=== PATIENT | male | born 1960 | race Caucasian/White ===

== ENCOUNTER 2017-11-27 16:22 | Inpatient (IN) | payer OTHER ==
[~2017-11-27] VITALS: Ht 188 cm; Wt 125.6 kg
[~2017-11-27 16:22] MED LIST: ALBU6.7H INH; ALLO300T PO; ASPI-496 PO; BUDE10.2 INH; CELE200C PO; CHOL2000 PO; COLC0.6T37 PO; FLUT9.9S NAS; GLIP-142 PO; GLUC1TAB32 PO; HYDR-3237 PO; INSU300I SQ; LOVA20TA2 PO; METF10002 PO; MONT10TA9 PO; MULT-412 PO; OMEP20TA62 PO; QUIN40TA PO
[2017-11-27] MEDS ORDERED: FLUT1DIS5 IH (16:53)
[2017-11-27] MEDS ORDERED: LOSA100T6 PO (16:53)
[2017-11-27] MEDS ORDERED: MELO15TA6 PO (16:53)
[2017-11-27] MEDS ORDERED: HYDR25TA6 PO (16:53)
[2017-11-27] MEDS ORDERED: SODIUM CHLORIDE 0.9% 1,000 ML IV ONE ×2 (17:17→18:58)
[2017-11-27] MEDS ORDERED: SODIUM CHLORIDE 0.9% 1,000ML IVBOLUS ONE ×2 (17:30→18:30)
[2017-11-27] MEDS ORDERED: IBUPROFEN 200 MG TABLET ONE (17:30)
[2017-11-27] MEDS ORDERED: SODIUM CHLORIDE FLUSH 10ML SYR IVF ONE (17:30)
[2017-11-27] MEDS ORDERED: IBUPROFEN 200 MG TABLET PO ONE (17:30)
[2017-11-27 17:58] LABS: MEAN CORPUSCULAR HEMOGLOBIN 28.9 pg (27.5-34.5); MEAN CORPUSCULAR HGB CONC 33.3 g/dL (33.2-36.2); MEAN CORPUSCULAR VOLUME 86.8 fL (81-97); MEAN PLATELET VOLUME 8.9 fL (7.4-10.4); PLATELET COUNT 178 x10^3/uL (130-400); RED BLOOD COUNT 4.76 x10^6/uL (4.38-5.82); RED CELL DISTRIBUTION WIDTH 15.1 % (9.4-14.8)
[2017-11-27 17:59] LABS: RAPID INFLUENZA A Negative (Negative); RAPID INFLUENZA B Negative (Negative)
[2017-11-27 18:06] LABS: ALANINE AMINOTRANSFERASE 38 U/L (12-78); ALBUMIN 3.5 g/dL (3.4-5.0); ANION GAP 12 mmol/L (5-15); CALCIUM 8.1 mg/dL (8.5-10.1); CHLORIDE 106 mmol/L (98-107); CREATININE 1.56 mg/dL (0.7-1.3)
[2017-11-27 18:10] LABS: ALKALINE PHOSPHATASE 92 U/L (45-117); BILIRUBIN,TOTAL 0.4 mg/dL (0.2-1.0); TOTAL PROTEIN 6.8 g/dL (6.4-8.2)
[2017-11-27 18:15] LABS: BASOPHILS # (AUTO) 0.03 x10^3/uL (0-0.1); BASOPHILS % (AUTO) 0 % (0-1); EOSINOPHILS # (AUTO) 0.02 x10^3/uL (0-0.4); EOSINOPHILS % (AUTO) 0 % (1-7); LYMPHOCYTES # (AUTO) 1.18 x10^3/uL (1-3.4); LYMPHOCYTES % (AUTO) 7 % (22-44); MD SCAN; MONOCYTES # (AUTO) 1.49 x10^3/uL (0.2-0.8); MONOCYTES % (AUTO) 9 % (2-9); NEUTROPHILS % (AUTO) 83 % (42-75)
[2017-11-27] MEDS ORDERED: CEFTRIAXONE PMX 1GM/50ML 50 ML IVPB ONE (18:30)
[2017-11-27] MEDS ORDERED: CEFTRIAXONE PMX 1GM/50ML 50 ML ONE (18:44)
[2017-11-27] MEDS ORDERED: SODIUM CHLORIDE FLUSH 10ML SYR IVF PRN (19:00)
[2017-11-27] MEDS: AZITHROMYCIN 500 MG in SODIUM CHLORIDE 0.9% 250 ML IVPB ONE (19:40)
[2017-11-27] MEDS ORDERED: GUAIFENESIN/DM 200-20MG, 10ML UDC PO PRN (21:00)
[2017-11-27] MEDS ORDERED: hydrALAzine 20 MG/ML, 1ML IVPush PRN (21:00)
[2017-11-27] MEDS ORDERED: DOCUSATE 100 MG CAPSULE PO PRN (21:00)
[2017-11-27] MEDS ORDERED: ACETAMINOPHEN 325 MG TABLET PO PRN (21:00)
[2017-11-27] MEDS ORDERED: TEMAZEPAM 15 MG CAPSULE PO PRN (21:00)
[2017-11-27] MEDS: SODIUM CHLORIDE 0.9% 1,000 ML IV SCH (21:31)
[2017-11-27 21:47] VITALS: BP 140/87
[2017-11-27] MEDS: INSULIN GLARGINE 100 UNITS/ML, PEN SQ-INSULIN SCH (23:59)
[2017-11-28] MEDS ORDERED: [UNRECOGNIZED DRUG - OTHER] PO SCH
[2017-11-28] MEDS ORDERED: CHONDR SU A NA PO SCH
[2017-11-28] MEDS ORDERED: TEMPLATE NON-FORMULARY MED. (Albuterol Sulfate (Proventil Hfa) 2 PUFF(S)) INH PRN
[2017-11-28] MEDS ORDERED: GLUCOSAMINE HCL PO SCH
[2017-11-28] MEDS: MULTIVITAMIN 1 TABLET PO SCH ×2 (01:01→20:06)
[2017-11-28] MEDS: CHOLECALCIFEROL 1,000 UNIT TABLET PO SCH ×2 (01:01→20:06)
[2017-11-28] MEDS: LOVASTATIN 20 MG TABLET PO SCH ×2 (01:01→20:06)
[2017-11-28] MEDS: MONTELUKAST 10 MG TABLET PO SCH ×2 (01:01→20:11)
[2017-11-28] MEDS: FLUTICASONE NASAL SPRAY 16GM NAS SCH ×2 (01:01→20:06)
[2017-11-28 02:34] VITALS: BP 148/78
[2017-11-28] MEDS: SODIUM CHLORIDE 0.9% 1,000 ML IV SCH ×4 (04:40→21:22)
[2017-11-28] MEDS: ALBUTEROL/IPRATROPIUM 2.5MG/0.5MG, 3 ML NPPB PRN ×2 (05:59→16:15)
[2017-11-28 06:00] LABS: MEAN CORPUSCULAR HEMOGLOBIN 29.4 pg (27.5-34.5); MEAN CORPUSCULAR HGB CONC 33.7 g/dL (33.2-36.2); MEAN CORPUSCULAR VOLUME 87.4 fL (81-97); MEAN PLATELET VOLUME 8.3 fL (7.4-10.4); PLATELET COUNT 173 x10^3/uL (130-400); RED BLOOD COUNT 4.53 x10^6/uL (4.38-5.82); RED CELL DISTRIBUTION WIDTH 14.9 % (9.4-14.8)
[2017-11-28 06:11] LABS: CHLORIDE 110 mmol/L (98-107)
[2017-11-28 06:18] LABS: ANION GAP 11 mmol/L (5-15); CALCIUM 8.1 mg/dL (8.5-10.1); CREATININE 1.29 mg/dL (0.7-1.3)
[2017-11-28 06:24] LABS: BASOPHILS # (AUTO) 0.08 x10^3/uL (0-0.1); BASOPHILS % (AUTO) 1 % (0-1); EOSINOPHILS # (AUTO) 0.06 x10^3/uL (0-0.4); EOSINOPHILS % (AUTO) 0 % (1-7); LYMPHOCYTES # (AUTO) 1.36 x10^3/uL (1-3.4); LYMPHOCYTES % (AUTO) 9 % (22-44); MD SCAN; MONOCYTES # (AUTO) 1.09 x10^3/uL (0.2-0.8); MONOCYTES % (AUTO) 7 % (2-9); NEUTROPHILS # (AUTO) 12.39 x10^3/uL (1.8-6.8); NEUTROPHILS % (AUTO) 83 % (42-75)
[2017-11-28] MEDS ORDERED: CEFTRIAXONE PMX 1GM/50ML 50 ML IV SCH (06:30)
[2017-11-28] MEDS: INSULIN LISPRO 100 UNITS/ML, PEN SQ-INSULIN SCH ×4 (07:00→20:11)
[2017-11-28 08:30] VITALS: BP 142/72
[2017-11-28] MEDS: LOSARTAN 50MG TABLET PO SCH (08:59)
[2017-11-28] MEDS: ALLOPURINOL 300 MG TABLET PO SCH (09:00)
[2017-11-28] MEDS: HYDROCHLOROTHIAZIDE 25 MG TABLET PO SCH (09:00)
[2017-11-28] MEDS: OMEPRAZOLE 20 MG CAPSULE.DR PO SCH (09:00)
[2017-11-28] MEDS: FLUTICASONE/VILANTEROL 200-25MCG/INH INH SCH (10:24)
[2017-11-28] MEDS: HYDROcodone/APAP 5/325 TABLET PO PRN ×2 (10:27→20:06)
[2017-11-28 14:30] VITALS: BP 149/80
[2017-11-28] MEDS ORDERED: SODIUM CHLORIDE NASAL SPRAY 45ML BOTTLE NAS PRN (16:00)
[2017-11-28] MEDS ORDERED: AZITHROMYCIN 500 MG in SODIUM CHLORIDE 0.9% 250 ML IV SCH (18:30)
[2017-11-28] MEDS: INSULIN GLARGINE 100 UNITS/ML, PEN SQ-INSULIN SCH (20:11)
[2017-11-28 20:15] VITALS: BP 165/80
[2017-11-28] MEDS ORDERED: ASPIRIN 81 MG TABLET EC PO SCH (21:00)
[2017-11-28 21:28] VITALS: BP 158/86
[2017-11-29 01:54] VITALS: BP_SYST 162; BP_SYST 167; BP_DIAS 78; BP_DIAS 86
[2017-11-29 03:43] VITALS: BP 159/89
[2017-11-29] MEDS: SODIUM CHLORIDE 0.9% 1,000 ML IV SCH (05:40)
[2017-11-29] MEDS: ALBUTEROL/IPRATROPIUM 2.5MG/0.5MG, 3 ML NPPB PRN (05:51)
[2017-11-29] MEDS ORDERED: CEFTRIAXONE PMX 2GM/50ML 50 ML IV SCH (06:30)
[2017-11-29 07:36] LABS: BASOPHILS # (AUTO) 0.03 x10^3/uL (0-0.1); BASOPHILS % (AUTO) 0 % (0-1); EOSINOPHILS # (AUTO) 0.15 x10^3/uL (0-0.4); EOSINOPHILS % (AUTO) 1 % (1-7); LYMPHOCYTES # (AUTO) 1.49 x10^3/uL (1-3.4); LYMPHOCYTES % (AUTO) 12 % (22-44); MD NO; MEAN CORPUSCULAR HEMOGLOBIN 29.2 pg (27.5-34.5); MEAN CORPUSCULAR HGB CONC 33.4 g/dL (33.2-36.2); MEAN CORPUSCULAR VOLUME 87.3 fL (81-97); MEAN PLATELET VOLUME 8.5 fL (7.4-10.4); MONOCYTES # (AUTO) 0.85 x10^3/uL (0.2-0.8); MONOCYTES % (AUTO) 7 % (2-9); NEUTROPHILS # (AUTO) 9.68 x10^3/uL (1.8-6.8); NEUTROPHILS % (AUTO) 79 % (42-75); PLATELET COUNT 173 x10^3/uL (130-400); RED BLOOD COUNT 4.48 x10^6/uL (4.38-5.82)
[2017-11-29 07:40] LABS: ANION GAP 9 mmol/L (5-15); CALCIUM 8.1 mg/dL (8.5-10.1); CHLORIDE 110 mmol/L (98-107)
[2017-11-29 07:45] LABS: CREATININE 1.19 mg/dL (0.7-1.3)
[2017-11-29] MEDS: ALLOPURINOL 300 MG TABLET PO SCH (08:22)
[2017-11-29] MEDS: OMEPRAZOLE 20 MG CAPSULE.DR PO SCH (08:22)
[2017-11-29] MEDS: LOSARTAN 50MG TABLET PO SCH (08:22)
[2017-11-29] MEDS: FLUTICASONE/VILANTEROL 200-25MCG/INH INH SCH (08:22)
[2017-11-29] MEDS: INSULIN LISPRO 100 UNITS/ML, PEN SQ-INSULIN SCH (08:22)
[2017-11-29] MEDS: HYDROCHLOROTHIAZIDE 25 MG TABLET PO SCH (08:22)
[2017-11-29 08:28] VITALS: BP 161/87
[2017-11-29] MEDS: HYDROcodone/APAP 5/325 TABLET PO PRN (08:28)
[2017-11-29] MEDS ORDERED: CEFD300C37 PO (09:21)
[2017-11-29] MEDS ORDERED: AZIT500T2 PO (09:21)
[2017-11-29] MEDS ORDERED: PRED20TA PO (09:21)
== END 2017-11-29 11:03 | disposition home or self-care (01) | DRG 871 ==
LOC: ED 18:17 → EDIP 18:58 → 4WST 22:31
PROVIDERS: ADMIT Hospitalist; ATTEND Hospitalist
DX: A41.9 Sepsis, unspecified organism (principal); J15.9 Unspecified bacterial pneumonia; J96.00 Acute respiratory failure, unspecified whether with hypoxia or hypercapnia; N17.0 Acute kidney failure with tubular necrosis; J44.0 Chronic obstructive pulmonary disease with (acute) lower respiratory infection; R65.21 Severe sepsis with septic shock; J45.901 Unspecified asthma with (acute) exacerbation; I11.9 Hypertensive heart disease without heart failure; E11.9 Type 2 diabetes mellitus without complications; E66.9 Obesity, unspecified; E78.5 Hyperlipidemia, unspecified; K21.9 Gastro-esophageal reflux disease without esophagitis; M10.9 Gout, unspecified; Z20.828 Contact with and (suspected) exposure to other viral communicable diseases; Z68.35 Body mass index [BMI] 35.0-35.9, adult; Z79.4 Long term (current) use of insulin; Z82.5 Family history of asthma and other chronic lower respiratory diseases; Z83.3 Family history of diabetes mellitus
CPT/HCPCS: 36415; 71045; 80048; 80053; 82962; 83605; 83735; 83880; 84145; 85025; 87040; 87400; 94640; 96361; 96365; 96367; J0456; J0696; J7620; J7030; J7050

== ENCOUNTER 2018-05-01 09:05 | Day surgery (SDC) | payer OTHER ==
[~2018-05-01] VITALS: Ht 188 cm; Wt 122.6 kg
[~2018-05-01 09:05] MED LIST changes: +AZIT500T2 PO; +BUPIVACAINE/PF 0.5% ONE; +CEFD300C37 PO; +EPINEPHRINE 1 MG/ML, 1ML ONE; +FLUT1DIS5 IH; +HYDR25TA6 PO; +LIDOCAINE/PF 1%, 30ML ONE; +LOSA100T6 PO; +MELO15TA6 PO; +PRED20TA PO
[2018-05-01] MEDS ORDERED: LACTATED RINGERS 1,000 ML IV SCH ×2 (09:28→09:37)
[2018-05-01] MEDS ORDERED: ACETAMINOPHEN 500 MG TABLET PO ONE (09:30)
[2018-05-01] MEDS ORDERED: OxyconTIN ER 10 MG TAB.ER PO ONE (09:30)
[2018-05-01] MEDS ORDERED: FAMOTIDINE 20 MG TABLET PO ONE (09:30)
[2018-05-01] MEDS ORDERED: GABAPENTIN 300 MG CAPSULE PO ONE (09:30)
[2018-05-01 09:41] VITALS: BP 157/84
[2018-05-01] MEDS ORDERED: MIDAZOLAM 1 MG/ML, 2ML ONE (09:49)
[2018-05-01] MEDS ORDERED: FENTANYL PF 100 MCG/2ML ONE ×2 (09:49→11:49)
[2018-05-01 10:18] LABS: ALANINE AMINOTRANSFERASE 44 U/L (12-78); ALBUMIN 3.9 g/dL (3.4-5.0); ANION GAP 7 mmol/L (5-15); CALCIUM 8.7 mg/dL (8.5-10.1); CHLORIDE 110 mmol/L (98-107); CREATININE 1.45 mg/dL (0.7-1.3)
[2018-05-01 10:21] LABS: ALKALINE PHOSPHATASE 106 U/L (45-117); BILIRUBIN,TOTAL 0.7 mg/dL (0.2-1.0); TOTAL PROTEIN 7.1 g/dL (6.4-8.2)
[2018-05-01] MEDS ORDERED: DEXAMETHASONE 4 MG/ML, 1ML ONE (10:40)
[2018-05-01] MEDS ORDERED: CEFAZOLIN 1,000 MG ONE (10:40)
[2018-05-01] MEDS ORDERED: PROPOFOL 10 MG/ML, 20ML ONE (10:40)
[2018-05-01] MEDS ORDERED: PROMETHAZINE 25 MG/ML, 1ML IV PRN (11:00)
[2018-05-01] MEDS ORDERED: TEMPLATE NON-FORMULARY MED. (Albuterol Sulfate (Proventil Hfa) 2 PUFF(S)) INH SCH (11:00)
[2018-05-01] MEDS ORDERED: OXYcodone 5 MG/5 ML ORAL.SOL UDC PO PRN (11:00)
[2018-05-01] MEDS ORDERED: ALBUTEROL/IPRATROPIUM 2.5MG/0.5MG, 3 ML NPPB PRN (11:00)
[2018-05-01] MEDS ORDERED: ONDANSETRON ODT 8 MG PO PRN (11:00)
[2018-05-01] MEDS ORDERED: MIDAZOLAM 1 MG/ML, 2ML IV PRN (11:00)
[2018-05-01] MEDS ORDERED: FENTANYL PF 100 MCG/2ML IV PRN (11:00)
[2018-05-01] MEDS ORDERED: LABETALOL 5MG/ML, 20ML IV PRN (11:00)
[2018-05-01] MEDS ORDERED: MEPERIDINE/PF 25MG/0.5ML IVPush PRN (11:00)
[2018-05-01] MEDS ORDERED: MORPHINE SULFATE 4 MG/ML, 1ML IVPush PRN (11:00)
[2018-05-01] MEDS ORDERED: hydrALAzine 20 MG/ML, 1ML IV PRN (11:00)
[2018-05-01] MEDS ORDERED: HYDROmorphone 1 MG/ML, 1ML IV PRN (11:00)
[2018-05-01] MEDS ORDERED: OXYcodone 5 MG/5 ML ORAL.SOL UDC ONE (11:50)
[2018-05-01] MEDS ORDERED: TEMPLATE NON-FORMULARY MED. (Metformin Hcl** 1,000 MG) PO SCH (21:00)
[2018-05-01] MEDS ORDERED: TEMPLATE NON-FORMULARY MED. (Glipizide** (Glipizide Xl**) 10 MG) PO SCH (21:00)
[2018-05-01] MEDS ORDERED: CHOLECALCIFEROL PO SCH (21:00)
[2018-05-01] MEDS ORDERED: MONTELUKAST SODIUM 10 MG PO SCH (21:00)
[2018-05-01] MEDS ORDERED: INSULIN GLARGINE HUM REC ANLOG 80 UNIT SQ SCH (21:00)
[2018-05-01] MEDS ORDERED: TEMPLATE NON-FORMULARY MED. (Aspirin** (Aspir 81**) 81 MG) PO SCH (21:00)
[2018-05-01] MEDS ORDERED: LOVASTATIN 20 MG TABLET PO SCH (21:00)
[2018-05-01] MEDS ORDERED: TEMPLATE NON-FORMULARY MED. (Fluticasone Propionate (Flonase Allergy Relief) 1 SPR) NAS SCH (21:00)
[2018-05-01] MEDS ORDERED: TEMPLATE NON-FORMULARY MED. (Fluticasone/Salmeterol** (Advair 500-50 Diskus**) 1 PUFF) IH SCH (21:00)
[2018-05-02] MEDS ORDERED: ALLOPURINOL 300 MG TABLET PO SCH (09:00)
[2018-05-02] MEDS ORDERED: HYDROCHLOROTHIAZIDE 25 MG TABLET PO SCH (09:00)
[2018-05-02] MEDS ORDERED: OMEPRAZOLE MAGNESIUM 40 MG PO SCH (09:00)
[2018-05-02] MEDS ORDERED: TEMPLATE NON-FORMULARY MED. (Losartan Potassium** 100 MG) PO SCH (09:00)
== END 2018-05-01 13:10 ==
LOC: OR 09:05
PROVIDERS: ATTEND Orthopaedic Surgery
DX: S83.271A Complex tear of lateral meniscus, current injury, right knee, initial encounter (principal); M94.261 Chondromalacia, right knee; I10 Essential (primary) hypertension; E11.9 Type 2 diabetes mellitus without complications; I25.10 Atherosclerotic heart disease of native coronary artery without angina pectoris; G47.33 Obstructive sleep apnea (adult) (pediatric); K21.9 Gastro-esophageal reflux disease without esophagitis; M10.9 Gout, unspecified; E78.5 Hyperlipidemia, unspecified; Z79.82 Long term (current) use of aspirin; Z79.4 Long term (current) use of insulin; Z68.35 Body mass index [BMI] 35.0-35.9, adult; Z79.899 Other long term (current) drug therapy; X58.XXXA Exposure to other specified factors, initial encounter; Y93.89 Activity, other specified; Y92.89 Other specified places as the place of occurrence of the external cause; Y99.8 Other external cause status
CPT/HCPCS: 29881; 80053; 82962; 93005; J0171; J0690; J1100; J2250; J2704; J3010; J3490; J7120

== ENCOUNTER 2019-09-18 05:13 | Inpatient (IN) | payer OTHER ==
[~2019-09-18] VITALS: Ht 188 cm; Wt 125.6 kg
[~2019-09-18 05:13] MED LIST changes: -ALBU6.7H INH; +ALBU6.7H8 INH; -BUPIVACAINE/PF 0.5% ONE; -EPINEPHRINE 1 MG/ML, 1ML ONE; +FLUT1DIS3 INH; +IBUP-1223 PO; -LIDOCAINE/PF 1%, 30ML ONE; +LOSA100T14 PO; -LOSA100T6 PO; +MELO7.5T31 PO; +OXYC5CAP2 PO; +TRAM50TA2 PO; +UBID100C41 PO
[2019-09-18] MEDS ORDERED: LACTATED RINGERS 1,000 ML IV SCH (13:43)
[2019-09-18] MEDS ORDERED: ACETAMINOPHEN 500 MG TABLET PO ONE (14:00)
[2019-09-18] MEDS ORDERED: VANCOMYCIN PER PHARMACY MC PRN ×2 (14:00→15:00)
[2019-09-18] MEDS ORDERED: GABAPENTIN 300 MG CAPSULE PO ONE (14:00)
[2019-09-18 14:05] VITALS: BP 148/91
[2019-09-18] MEDS ORDERED: ACETAMINOPHEN 500 MG TABLET ONE (14:26)
[2019-09-18] MEDS ORDERED: MIDAZOLAM 1 MG/ML, 2ML ONE (14:27)
[2019-09-18] MEDS ORDERED: FENTANYL PF 250 MCG/5ML ONE (14:27)
[2019-09-18] MEDS ORDERED: GABAPENTIN 300 MG CAPSULE ONE (14:27)
[2019-09-18] MEDS ORDERED: ROCURONIUM 10MG/ML,5ML ONE (14:30)
[2019-09-18] MEDS ORDERED: PROPOFOL 10 MG/ML, 20ML ONE (14:30)
[2019-09-18] MEDS ORDERED: TRANEXAMIC ACID 100 MG/ML, 10ML ONE ×2 (14:34)
[2019-09-18] MEDS ORDERED: VANCOMYCIN 1,000 MG ONE ×2 (14:34→16:42)
[2019-09-18] MEDS ORDERED: TOBRAMYCIN SULFATE 1.2 GM IMP ONE (14:34)
[2019-09-18] MEDS: NS + 20MEQ KCL 1,000 ML IV SCH (14:41)
[2019-09-18] MEDS ORDERED: MEPERIDINE/PF 25MG/ML,1ML IVPush PRN (15:00)
[2019-09-18] MEDS ORDERED: DIPHENHYDRAMINE 25 MG CAPSULE PO PRN (15:00)
[2019-09-18] MEDS ORDERED: hydrALAzine 20 MG/ML, 1ML IV PRN (15:00)
[2019-09-18] MEDS ORDERED: LABETALOL 5MG/ML, 20ML IV PRN (15:00)
[2019-09-18] MEDS ORDERED: ONDANSETRON 2MG/ML, 2ML IV PRN ×2 (15:00)
[2019-09-18] MEDS ORDERED: BISACODYL 10 MG SUPP PR PRN (15:00)
[2019-09-18] MEDS ORDERED: LORazepam 2 MG/ML, 1ML IVPush PRN (15:00)
[2019-09-18] MEDS ORDERED: OXYcodone 5 MG/5 ML ORAL.SOL UDC PO PRN (15:00)
[2019-09-18] MEDS ORDERED: METOCLOPRAMIDE 5 MG/ML, 2ML IV PRN (15:00)
[2019-09-18] MEDS ORDERED: VANCOMYCIN 2,300 MG in SODIUM CHLORIDE 0.9% 500 ML IV ONE (15:00)
[2019-09-18] MEDS ORDERED: ZOLPIDEM 5MG TABLET PO PRN (15:00)
[2019-09-18] MEDS ORDERED: ALBUTEROL SULFATE 2.5 MG/3 ML NPPB PRN ×2 (15:00)
[2019-09-18] MEDS ORDERED: HYDROcodone/APAP 5/325 TABLET PO PRN (15:00)
[2019-09-18] MEDS ORDERED: ONDANSETRON 4 MG TABLET PO PRN (15:00)
[2019-09-18] MEDS ORDERED: SCOPOLAMINE PATCH, 1.5MG PATCH.TD72 TD ONE (15:00)
[2019-09-18] MEDS ORDERED: LIDOCAINE 2% 100MG/5ML SYRINGE ONE (15:13)
[2019-09-18 15:39] LABS: HCT (SEDRATE) 36.2 % (39.2-51.8)
[2019-09-18] MEDS ORDERED: GLYCOPYRROLATE 0.2MG/1ML, 5ML ONE (17:00)
[2019-09-18] MEDS ORDERED: NEOSTIGMINE 1 MG/ML, 10ML ONE (17:00)
[2019-09-18] MEDS ORDERED: ONDANSETRON 2MG/ML, 2ML ONE (17:02)
[2019-09-18] MEDS ORDERED: FENTANYL PF 100 MCG/2ML ONE (17:40)
[2019-09-18] MEDS ORDERED: OXYcodone 5 MG/5 ML ORAL.SOL UDC ONE (17:40)
[2019-09-18] MEDS: FENTANYL PF 100 MCG/2ML IV PRN ×2 (17:40→18:00)
[2019-09-18] MEDS: ASPIRIN 81 MG TABLET EC PO SCH (18:00)
[2019-09-18] MEDS ORDERED: HYDROmorphone 1 MG/ML, 1ML VIAL ONE (18:16)
[2019-09-18] MEDS: HYDROmorphone 2 MG/ML, 1ML IVPush PRN ×2 (18:17→18:30)
[2019-09-18 20:00] VITALS: BP 154/89
[2019-09-18] MEDS: ALBUTEROL SULFATE 2.5 MG/3 ML NPPB SCH (21:00)
[2019-09-18] MEDS ORDERED: TEMPLATE NON-FORMULARY MED. (Fluticasone/Salmeterol** (Advair 500-50 Diskus**) 1 PUFF) IH SCH (21:00)
[2019-09-18] MEDS: FLUTICASONE NASAL SPRAY 16GM NAS SCH (21:00)
[2019-09-18] MEDS: BUDESONIDE 0.5 MG/2 ML INHA INH SCH (21:00)
[2019-09-18] MEDS ORDERED: INSULIN GLARGINE 100 UNITS/ML, PEN SQ-INSULIN SCH (21:00)
[2019-09-18] MEDS: INSULIN LISPRO 100 UNITS/ML, PEN SQ-INSULIN SCH ×2 (21:00→22:46)
[2019-09-18] MEDS ORDERED: TEMPLATE NON-FORMULARY MED. (Ubidecarenone** (Co Q-10**) 100 MG) PO SCH (21:00)
[2019-09-18] MEDS ORDERED: PHARMACOKINETIC CONSULTATION MC ONE ×2 (21:30)
[2019-09-18] MEDS ORDERED: PHARMACOKINETIC MONITORING MC PRN ×2 (21:30)
[2019-09-18] MEDS ORDERED: ALBUTEROL HFA 90 MCG/SPRAY HOMEINH PRN (21:30)
[2019-09-18] MEDS: metFORMIN 500 MG TABLET PO SCH (22:35)
[2019-09-18] MEDS: DOCUSATE 100 MG CAPSULE PO SCH (22:35)
[2019-09-18] MEDS: GLIPizide ER 5 MG TABLET PO SCH (22:35)
[2019-09-18] MEDS: MONTELUKAST 10 MG TABLET PO SCH (22:35)
[2019-09-18] MEDS: LOVASTATIN 20 MG TABLET PO SCH (22:35)
[2019-09-18] MEDS: OXYcodone IR 5MG TABLET PO PRN (22:36)
[2019-09-18] MEDS: ADVAIR INH SCH (22:36)
[2019-09-18] MEDS: TEMPLATE NON-FORMULARY INJ HOMEINJ SCH (22:46)
[2019-09-19] MEDS: CEFAZOLIN PMX 2GM/50ML 50 ML IVPB SCH ×4 (00:22→23:54)
[2019-09-19] MEDS: HYDROmorphone 1 MG/ML, 1ML VIAL IV PRN ×3 (01:00→09:03)
[2019-09-19 01:52] VITALS: BP 151/84
[2019-09-19] MEDS: OXYcodone IR 5MG TABLET PO PRN ×5 (02:22→20:00)
[2019-09-19] MEDS: ALBUTEROL SULFATE 2.5 MG/3 ML NPPB SCH ×4 (03:00→21:00)
[2019-09-19] MEDS: NS + 20MEQ KCL 1,000 ML IV SCH ×3 (03:11→23:59)
[2019-09-19 04:28] VITALS: BP 121/76
[2019-09-19] MEDS ORDERED: VANCOMYCIN 2,000 MG in SODIUM CHLORIDE 0.9% 500 ML IV SCH (05:00)
[2019-09-19 05:36] LABS: ANION GAP 7 mmol/L (5-15); CALCIUM 7.8 mg/dL (8.5-10.1); CHLORIDE 103 mmol/L (98-107); CREATININE 1.75 mg/dL (0.7-1.3)
[2019-09-19] MEDS: INSULIN LISPRO 100 UNITS/ML, PEN SQ-INSULIN SCH ×4 (07:00→21:00)
[2019-09-19] MEDS: ASPIRIN 81 MG TABLET EC PO SCH ×2 (07:25→17:04)
[2019-09-19] MEDS: OMEPRAZOLE 20 MG CAPSULE.DR PO SCH (08:23)
[2019-09-19] MEDS: metFORMIN 500 MG TABLET PO SCH ×2 (08:23→17:47)
[2019-09-19] MEDS: HYDROCHLOROTHIAZIDE 25 MG TABLET PO SCH (08:24)
[2019-09-19] MEDS: DOCUSATE 100 MG CAPSULE PO SCH ×2 (08:24→19:59)
[2019-09-19] MEDS: ALLOPURINOL 300 MG TABLET PO SCH (08:24)
[2019-09-19] MEDS: TAMSULOSIN 0.4 MG CAP.ER.24H PO SCH (08:24)
[2019-09-19] MEDS: LOSARTAN 50MG TABLET PO SCH (08:26)
[2019-09-19 08:41] VITALS: BP 170/78
[2019-09-19] MEDS: ADVAIR INH SCH ×2 (09:00→20:00)
[2019-09-19] MEDS ORDERED: TEMPLATE NON-FORMULARY MED. (Fluticasone/Salmeterol** (Advair 250-50 Diskus**) 1 PUFF) INH SCH (09:00)
[2019-09-19] MEDS: BUDESONIDE 0.5 MG/2 ML INHA INH SCH ×2 (09:00→21:00)
[2019-09-19] MEDS: ACETAMINOPHEN 650 MG/20.3 ML UDC PO PRN (13:31)
[2019-09-19 19:49] VITALS: BP 130/76
[2019-09-19] MEDS: GLIPizide ER 5 MG TABLET PO SCH (19:59)
[2019-09-19] MEDS: MONTELUKAST 10 MG TABLET PO SCH (19:59)
[2019-09-19] MEDS: LOVASTATIN 20 MG TABLET PO SCH (19:59)
[2019-09-19] MEDS: FLUTICASONE NASAL SPRAY 16GM NAS SCH (20:01)
[2019-09-19] MEDS: TEMPLATE NON-FORMULARY INJ HOMEINJ SCH (20:01)
[2019-09-19] MEDS ORDERED: TOUJEO INSULIN HOMEINJ SCH (21:00)
[2019-09-20] MEDS: OXYcodone IR 5MG TABLET PO PRN ×5 (00:32→20:18)
[2019-09-20] MEDS: SENNA/DOCUSATE TABLET PO PRN (01:44)
[2019-09-20 01:52] VITALS: BP 140/73
[2019-09-20] MEDS: ASPIRIN 81 MG TABLET EC PO SCH ×2 (05:11→16:10)
[2019-09-20 05:41] LABS: ANION GAP 9 mmol/L (5-15); CALCIUM 7.6 mg/dL (8.5-10.1); CHLORIDE 100 mmol/L (98-107); CREATININE 1.97 mg/dL (0.7-1.3)
[2019-09-20] MEDS: HYDROmorphone 1 MG/ML, 1ML VIAL IV PRN (06:49)
[2019-09-20 06:56] VITALS: BP 134/72
[2019-09-20] MEDS: INSULIN LISPRO 100 UNITS/ML, PEN SQ-INSULIN SCH ×4 (07:00→20:18)
[2019-09-20] MEDS: HYDROCHLOROTHIAZIDE 25 MG TABLET PO SCH (07:47)
[2019-09-20] MEDS: metFORMIN 500 MG TABLET PO SCH (07:47)
[2019-09-20] MEDS: ALLOPURINOL 300 MG TABLET PO SCH (07:47)
[2019-09-20] MEDS: TAMSULOSIN 0.4 MG CAP.ER.24H PO SCH (07:47)
[2019-09-20] MEDS: DOCUSATE 100 MG CAPSULE PO SCH ×2 (07:47→20:16)
[2019-09-20] MEDS: OMEPRAZOLE 20 MG CAPSULE.DR PO SCH (07:47)
[2019-09-20] MEDS: LOSARTAN 50MG TABLET PO SCH (07:47)
[2019-09-20] MEDS: ADVAIR INH SCH ×2 (07:48→20:00)
[2019-09-20] MEDS: CEFAZOLIN PMX 2GM/50ML 50 ML IVPB SCH (07:49)
[2019-09-20] MEDS: CALCIUM CARBONATE 500 MG TAB.CHEW PO PRN (10:51)
[2019-09-20] MEDS: NS + 20MEQ KCL 1,000 ML IV SCH (12:30)
[2019-09-20 13:45] VITALS: BP 126/71
[2019-09-20] MEDS ORDERED: ACETAMINOPHEN 325 MG TABLET ONE (14:07)
[2019-09-20] MEDS: ACETAMINOPHEN 650 MG/20.3 ML UDC PO PRN (14:08)
[2019-09-20] MEDS ORDERED: DEXTROSE 4 GM TAB.CHEW PO PRN (16:30)
[2019-09-20] MEDS ORDERED: DEXTROSE 50%, 50ML SYRINGE IVPush PRN (16:30)
[2019-09-20] MEDS ORDERED: GLUCAGON 1 MG IM PRN (16:30)
[2019-09-20 16:59] LABS: CREATININE,URINE RANDOM 70.2 mg/dL
[2019-09-20] MEDS: MAGNESIUM HYDROXIDE 8%, 30ML UDC PO PRN (17:22)
[2019-09-20] MEDS: FLUTICASONE NASAL SPRAY 16GM NAS SCH (20:00)
[2019-09-20] MEDS: SODIUM CHLORIDE FLUSH 10ML SYR IVF SCH (20:00)
[2019-09-20] MEDS: GLIPizide ER 5 MG TABLET PO SCH (20:16)
[2019-09-20] MEDS: MONTELUKAST 10 MG TABLET PO SCH (20:17)
[2019-09-20] MEDS: AMLODIPINE 5 MG TABLET PO SCH (20:17)
[2019-09-20 20:40] VITALS: BP 116/71
[2019-09-20] MEDS ORDERED: TOUJEO INSULIN 300 UNIT/ML SC SCH (21:00)
[2019-09-20] MEDS ORDERED: CEFAZOLIN PMX 1GM/50ML 50 ML IV ONE (21:00)
[2019-09-21 00:33] VITALS: BP 130/76
[2019-09-21] MEDS: OXYcodone IR 5MG TABLET PO PRN ×5 (02:24→20:34)
[2019-09-21] MEDS: ACETAMINOPHEN 650 MG/20.3 ML UDC PO PRN (04:30)
[2019-09-21] MEDS: ASPIRIN 81 MG TABLET EC PO SCH ×2 (05:13→17:48)
[2019-09-21 05:21] LABS: HCT (SEDRATE) 27.1 % (39.2-51.8)
[2019-09-21 05:26] LABS: BASOPHILS # (AUTO) 0.04 x10^3/uL (0-0.1); BASOPHILS % (AUTO) 1 % (0-1); EOSINOPHILS # (AUTO) 0.26 x10^3/uL (0-0.4); EOSINOPHILS % (AUTO) 4 % (1-7); LYMPHOCYTES # (AUTO) 1.07 x10^3/uL (1-3.4); LYMPHOCYTES % (AUTO) 16 % (22-44); MD NO; MEAN CORPUSCULAR HEMOGLOBIN 27.9 pg (27.5-34.5); MEAN CORPUSCULAR HGB CONC 32.6 g/dL (33.2-36.2); MEAN CORPUSCULAR VOLUME 85.8 fL (81-97); MONOCYTES # (AUTO) 0.84 x10^3/uL (0.2-0.8); MONOCYTES % (AUTO) 13 % (2-9); NEUTROPHILS # (AUTO) 4.47 x10^3/uL (1.8-6.8); NEUTROPHILS % (AUTO) 67 % (42-75); PLATELET COUNT 229 x10^3/uL (130-400); RED BLOOD COUNT 3.21 x10^6/uL (4.38-5.82); RED CELL DISTRIBUTION WIDTH 14.9 % (9.4-14.8)
[2019-09-21 05:27] LABS: ALANINE AMINOTRANSFERASE 20 U/L (12-78); ALBUMIN 2.4 g/dL (3.4-5.0); ANION GAP 7 mmol/L (5-15); CALCIUM 7.6 mg/dL (8.5-10.1); CHLORIDE 100 mmol/L (98-107)
[2019-09-21 05:34] LABS: ALKALINE PHOSPHATASE 164 U/L (45-117); BILIRUBIN,TOTAL 0.5 mg/dL (0.2-1.0); CREATINE KINASE, TOTAL 166 U/L (39-308); TOTAL PROTEIN 6.4 g/dL (6.4-8.2)
[2019-09-21 06:38] LABS: SEDIMENTATION RATE > 120 mm/hr (0-10)
[2019-09-21 07:05] VITALS: BP 127/76
[2019-09-21] MEDS: INSULIN LISPRO 100 UNITS/ML, PEN SQ-INSULIN SCH ×4 (08:13→22:16)
[2019-09-21] MEDS: OMEPRAZOLE 20 MG CAPSULE.DR PO SCH (08:14)
[2019-09-21] MEDS: AMLODIPINE 5 MG TABLET PO SCH ×2 (08:14→20:28)
[2019-09-21] MEDS: DOCUSATE 100 MG CAPSULE PO SCH ×2 (08:14→20:28)
[2019-09-21] MEDS: ALLOPURINOL 300 MG TABLET PO SCH (08:14)
[2019-09-21] MEDS: TAMSULOSIN 0.4 MG CAP.ER.24H PO SCH (08:14)
[2019-09-21] MEDS: MAGNESIUM HYDROXIDE 8%, 30ML UDC PO PRN (08:15)
[2019-09-21] MEDS: SODIUM CHLORIDE FLUSH 10ML SYR IVF SCH ×2 (09:00→20:28)
[2019-09-21] MEDS ORDERED: DAPTOMYCIN 750 MG in SODIUM CHLORIDE 0.9% 100 ML IVPB SCH (09:00)
[2019-09-21] MEDS: ADVAIR INH SCH ×2 (09:00→20:29)
[2019-09-21] MEDS: CALCIUM CARBONATE 500 MG TAB.CHEW PO PRN (11:00)
[2019-09-21 13:49] VITALS: BP 157/73
[2019-09-21] MEDS ORDERED: NS + 20MEQ KCL 1,000 ML IV SCH ×2 (14:41)
[2019-09-21 19:04] VITALS: BP 150/79
[2019-09-21] MEDS: MONTELUKAST 10 MG TABLET PO SCH (20:28)
[2019-09-21] MEDS: GLIPizide ER 5 MG TABLET PO SCH (20:28)
[2019-09-21] MEDS: FLUTICASONE NASAL SPRAY 16GM NAS SCH (20:33)
[2019-09-21] MEDS ORDERED: INSULIN GLARGINE SC SCH (21:00)
[2019-09-22 01:27] VITALS: BP 148/80
[2019-09-22] MEDS: OXYcodone IR 5MG TABLET PO PRN ×3 (03:03→12:26)
[2019-09-22] MEDS: NS + 20MEQ KCL 1,000 ML IV SCH ×3 (03:04→12:27)
[2019-09-22 06:22] LABS: ALBUMIN 2.4 g/dL (3.4-5.0); ANION GAP 6 mmol/L (5-15); CALCIUM 7.9 mg/dL (8.5-10.1); CHLORIDE 104 mmol/L (98-107)
[2019-09-22 06:26] LABS: ALANINE AMINOTRANSFERASE 22 U/L (12-78); ALKALINE PHOSPHATASE 168 U/L (45-117); BILIRUBIN,TOTAL 0.4 mg/dL (0.2-1.0); CREATININE 1.88 mg/dL (0.7-1.3); TOTAL PROTEIN 6.3 g/dL (6.4-8.2)
[2019-09-22] MEDS: ASPIRIN 81 MG TABLET EC PO SCH (06:51)
[2019-09-22 07:04] VITALS: BP 150/81
[2019-09-22] MEDS ORDERED: METOPROLOL TARTRATE 50 MG TABLET PO SCH (08:00)
[2019-09-22 08:18] LABS: BASOPHILS # (AUTO) 0.03 x10^3/uL (0-0.1); BASOPHILS % (AUTO) 1 % (0-1); EOSINOPHILS # (AUTO) 0.23 x10^3/uL (0-0.4); EOSINOPHILS % (AUTO) 3 % (1-7); LYMPHOCYTES # (AUTO) 1.02 x10^3/uL (1-3.4); LYMPHOCYTES % (AUTO) 15 % (22-44); MD NO; MEAN CORPUSCULAR HEMOGLOBIN 27.8 pg (27.5-34.5); MEAN CORPUSCULAR HGB CONC 32.9 g/dL (33.2-36.2); MEAN CORPUSCULAR VOLUME 84.6 fL (81-97); MEAN PLATELET VOLUME 7.6 fL (7.4-10.4); MONOCYTES % (AUTO) 12 % (2-9); NEUTROPHILS # (AUTO) 4.82 x10^3/uL (1.8-6.8); NEUTROPHILS % (AUTO) 70 % (42-75); PLATELET COUNT 262 x10^3/uL (130-400); RED BLOOD COUNT 3.18 x10^6/uL (4.38-5.82); RED CELL DISTRIBUTION WIDTH 15.2 % (9.4-14.8)
[2019-09-22] MEDS: INSULIN LISPRO 100 UNITS/ML, PEN SQ-INSULIN SCH ×2 (08:22→11:41)
[2019-09-22] MEDS: OMEPRAZOLE 20 MG CAPSULE.DR PO SCH (08:22)
[2019-09-22] MEDS: DOCUSATE 100 MG CAPSULE PO SCH (08:23)
[2019-09-22] MEDS: TAMSULOSIN 0.4 MG CAP.ER.24H PO SCH (08:23)
[2019-09-22] MEDS: ALLOPURINOL 300 MG TABLET PO SCH (08:23)
[2019-09-22] MEDS: SENNA/DOCUSATE TABLET PO PRN (08:23)
[2019-09-22] MEDS: AMLODIPINE 5 MG TABLET PO SCH (08:23)
[2019-09-22] MEDS: ADVAIR INH SCH (08:24)
[2019-09-22] MEDS: SODIUM CHLORIDE FLUSH 10ML SYR IVF SCH (08:27)
[2019-09-22 12:49] VITALS: BP 145/78
[2019-09-22] MEDS ORDERED: NS + 20MEQ KCL 1,000 ML IV SCH (14:41)
[2019-09-23] MEDS ORDERED: DAPTOMYCIN 750 MG in SODIUM CHLORIDE 0.9% 100 ML IVPB SCH (09:00)
== END 2019-09-22 15:01 | disposition home health service (06) | DRG 467 ==
LOC: ORIP 05:13 → 4NE 19:35 → DCLOUNGE 09-22 14:50
PROVIDERS: ADMIT Orthopaedic Surgery; ATTEND Orthopaedic Surgery
PROC: 0SRC0J9 Replacement of Right Knee Joint with Synthetic Substitute, Cemented, Open Approach (ICD-10-PCS; 2019-09-18)
PROC: 3E0T3BZ Introduction of Anesthetic Agent into Peripheral Nerves and Plexi, Percutaneous Approach (ICD-10-PCS; 2019-09-18)
PROC: 0SPC0JZ Removal of Synthetic Substitute from Right Knee Joint, Open Approach (ICD-10-PCS; principal; 2019-09-18 16:00)
PROC: 02HV33Z Insertion of Infusion Device into Superior Vena Cava, Percutaneous Approach (ICD-10-PCS; 2019-09-21)
PROC: B548ZZA Ultrasonography of Superior Vena Cava, Guidance (ICD-10-PCS; 2019-09-21)
PROC: B5181ZA Fluoroscopy of Superior Vena Cava using Low Osmolar Contrast, Guidance (ICD-10-PCS; 2019-09-21)
DX: T84.53XA Infection and inflammatory reaction due to internal right knee prosthesis, initial encounter (principal); E87.1 Hypo-osmolality and hyponatremia; N17.9 Acute kidney failure, unspecified; E11.22 Type 2 diabetes mellitus with diabetic chronic kidney disease; E66.01 Morbid (severe) obesity due to excess calories; E78.5 Hyperlipidemia, unspecified; I12.9 Hypertensive chronic kidney disease with stage 1 through stage 4 chronic kidney disease, or unspecified chronic kidney disease; J44.9 Chronic obstructive pulmonary disease, unspecified; K21.9 Gastro-esophageal reflux disease without esophagitis; M10.9 Gout, unspecified; G47.33 Obstructive sleep apnea (adult) (pediatric); B95.61 Methicillin susceptible Staphylococcus aureus infection as the cause of diseases classified elsewhere; Y83.1 Surgical operation with implant of artificial internal device as the cause of abnormal reaction of the patient, or of later complication, without mention of misadventure at the time of the procedure; M17.0 Bilateral primary osteoarthritis of knee; N18.3 Chronic kidney disease, stage 3 (moderate); Y92.89 Other specified places as the place of occurrence of the external cause; Z83.3 Family history of diabetes mellitus; Z82.5 Family history of asthma and other chronic lower respiratory diseases; Z80.9 Family history of malignant neoplasm, unspecified; Z79.4 Long term (current) use of insulin; Z68.35 Body mass index [BMI] 35.0-35.9, adult
CPT/HCPCS: 36415; 73564; J3260; J7613; J7626; 36573; 76770; 80048; 80053; 80202; 82436; 82550; 82570; 82962; 84133; 84300; 85014; 85018; 85025; 85651; 86140; 87040; 87070; 87075; 87077; 87147; 87176; 87186; 87205; 94640; C1713; G0378; J0690; J0878; J1170; J2250; J2405; J2704; J2710; J3010; J3370; J3480; Q0162; C1751; C1776; J1815; J7040; J7120

== ENCOUNTER 2019-12-09 10:56 | Inpatient (IN) | payer OTHER ==
[2019-12-07 15:29] LABS: BASOPHILS # (AUTO) 0.04 x10^3/uL (0-0.1); BASOPHILS % (AUTO) 1 % (0-1); EOSINOPHILS # (AUTO) 0.21 x10^3/uL (0-0.4); EOSINOPHILS % (AUTO) 3 % (1-7); LYMPHOCYTES # (AUTO) 1.52 x10^3/uL (1-3.4); LYMPHOCYTES % (AUTO) 22 % (22-44); MD NO; MEAN CORPUSCULAR HEMOGLOBIN 26.9 pg (27.5-34.5); MEAN CORPUSCULAR HGB CONC 32.7 g/dL (33.2-36.2); MEAN CORPUSCULAR VOLUME 82.3 fL (81-97); MEAN PLATELET VOLUME 7.3 fL (7.4-10.4); MONOCYTES # (AUTO) 0.48 x10^3/uL (0.2-0.8); MONOCYTES % (AUTO) 7 % (2-9); NEUTROPHILS # (AUTO) 4.68 x10^3/uL (1.8-6.8); NEUTROPHILS % (AUTO) 68 % (42-75); PLATELET COUNT 248 x10^3/uL (130-400); RED BLOOD COUNT 4.23 x10^6/uL (4.38-5.82); RED CELL DISTRIBUTION WIDTH 16.4 % (9.4-14.8)
[2019-12-07 15:42] LABS: ALANINE AMINOTRANSFERASE 58 U/L (12-78); ALBUMIN 3.2 g/dL (3.4-5.0); ANION GAP 11 mmol/L (5-15); CALCIUM 8.3 mg/dL (8.5-10.1); CHLORIDE 105 mmol/L (98-107); CREATININE 1.92 mg/dL (0.7-1.3)
[2019-12-07 15:44] LABS: ALKALINE PHOSPHATASE 136 U/L (45-117); BILIRUBIN,TOTAL 0.6 mg/dL (0.2-1.0); TOTAL PROTEIN 7.1 g/dL (6.4-8.2)
[2019-12-07 15:45] LABS: PROTHROMBIN TIME 10.6 Seconds (9.6-11.5)
[~2019-12-09] VITALS: Ht 188 cm; Wt 123.2 kg
[~2019-12-09 10:56] MED LIST changes: +CETI-158 PO; +CYCL-259 PO; +EPINEPHRINE 1 MG/ML, 1ML ONE; +GLIP10TA24 PO; +KETOROLAC 60 MG/2 ML ONE; +MONT10TA11 PO; -MONT10TA9 PO; +ROPIvacaine/PF 0.5%, 20 ML ONE; +ROPIvacaine/PF 0.5%, 30 ML ONE; +SODIUM CHLORIDE 0.9% 50 ML ONE; +TRANEXAMIC ACID 100 MG/ML, 10ML ONE; +UBID100C24 PO; +VANCOMYCIN 1,000 MG ONE
[2019-12-09] MEDS ORDERED: LACTATED RINGERS 1,000 ML IV SCH (11:29)
[2019-12-09] MEDS ORDERED: ACETAMINOPHEN 500 MG TABLET PO ONE (11:30)
[2019-12-09] MEDS ORDERED: VANCOMYCIN PER PHARMACY MC PRN (11:30)
[2019-12-09] MEDS ORDERED: GABAPENTIN 300 MG CAPSULE PO ONE (11:30)
[2019-12-09] MEDS ORDERED: PHARMACOKINETIC CONSULTATION MC ONE (12:00)
[2019-12-09] MEDS ORDERED: VANCOMYCIN 2,000 MG in SODIUM CHLORIDE 0.9% 500 ML IV ONE (12:00)
[2019-12-09] MEDS ORDERED: TOBRAMYCIN SULFATE 1.2 GM IMP ONE (12:36)
[2019-12-09] MEDS ORDERED: VANCOMYCIN 1,000 MG ONE (12:36)
[2019-12-09] MEDS ORDERED: MIDAZOLAM 1 MG/ML, 2ML ONE (13:31)
[2019-12-09] MEDS ORDERED: FENTANYL PF 250 MCG/5ML ONE (13:31)
[2019-12-09] MEDS ORDERED: ONDANSETRON 4 MG TABLET PO PRN (15:30)
[2019-12-09] MEDS ORDERED: ONDANSETRON 2MG/ML, 2ML IV PRN (15:30)
[2019-12-09] MEDS ORDERED: DIPHENHYDRAMINE 25 MG CAPSULE PO PRN (15:30)
[2019-12-09] MEDS ORDERED: SENNA/DOCUSATE TABLET PO PRN (15:30)
[2019-12-09] MEDS ORDERED: ZOLPIDEM 5MG TABLET PO PRN (15:30)
[2019-12-09] MEDS ORDERED: MAGNESIUM HYDROXIDE 8%, 30ML UDC PO PRN (15:30)
[2019-12-09] MEDS ORDERED: CETIRIZINE 10 MG TABLET PO PRN (15:30)
[2019-12-09] MEDS ORDERED: BISACODYL 10 MG SUPP PR PRN (15:30)
[2019-12-09] MEDS: INSULIN LISPRO 100 UNITS/ML, PEN SQ-INSULIN SCH ×2 (16:00→23:50)
[2019-12-09] MEDS ORDERED: FENTANYL PF 100 MCG/2ML ONE ×3 (16:09→17:40)
[2019-12-09] MEDS ORDERED: ROCURONIUM 10MG/ML,5ML ONE (16:49)
[2019-12-09] MEDS ORDERED: GLYCOPYRROLATE 0.2MG/1ML, 5ML ONE (16:49)
[2019-12-09] MEDS ORDERED: CEFAZOLIN 1,000 MG ONE (16:49)
[2019-12-09] MEDS ORDERED: DEXAMETHASONE 4 MG/ML, 1ML ONE (16:49)
[2019-12-09] MEDS ORDERED: SUCCINYLCHOLINE 20 MG/ML, 10ML ONE (16:49)
[2019-12-09] MEDS ORDERED: NEOSTIGMINE 1 MG/ML, 10ML ONE (16:49)
[2019-12-09] MEDS ORDERED: ONDANSETRON 2MG/ML, 2ML ONE (16:49)
[2019-12-09] MEDS ORDERED: PROPOFOL 10 MG/ML, 20ML ONE (16:49)
[2019-12-09] MEDS ORDERED: OXYcodone 5 MG/5 ML ORAL.SOL UDC ONE ×2 (17:39→17:45)
[2019-12-09] MEDS: FENTANYL PF 100 MCG/2ML IV PRN ×2 (17:40→18:00)
[2019-12-09] MEDS ORDERED: OXYcodone 5 MG/5 ML ORAL.SOL UDC PO PRN (18:00)
[2019-12-09] MEDS ORDERED: ALBUTEROL SULFATE 2.5 MG/3 ML NPPB PRN (19:00)
[2019-12-09] MEDS ORDERED: BUDESONIDE 0.5 MG/2 ML INHA NPPB SCH (19:00)
[2019-12-09] MEDS: ACETAMINOPHEN 650 MG/20.3 ML UDC PO SCH ×2 (19:00→21:36)
[2019-12-09] MEDS ORDERED: ALBUTEROL SULFATE 2.5 MG/3 ML NPPB SCH (19:00)
[2019-12-09 19:57] VITALS: BP 148/82
[2019-12-09] MEDS: ADVAIR INH SCH (21:00)
[2019-12-09] MEDS ORDERED: INSULIN GLARGINE HUM REC ANLOG 150 UNIT SQ SCH (21:00)
[2019-12-09] MEDS: ASPIRIN 81 MG TABLET EC PO SCH (21:34)
[2019-12-09] MEDS: LOVASTATIN 20 MG TABLET PO SCH (21:35)
[2019-12-09] MEDS: CYCLOBENZAPRINE 10 MG TABLET PO PRN (21:35)
[2019-12-09] MEDS: DOCUSATE 100 MG CAPSULE PO SCH (21:35)
[2019-12-09] MEDS: MONTELUKAST 10 MG TABLET PO SCH (21:35)
[2019-12-09] MEDS: OXYcodone IR 5MG TABLET PO PRN (21:36)
[2019-12-09] MEDS: metFORMIN 500 MG TABLET PO SCH (22:02)
[2019-12-09] MEDS: NS + 20MEQ KCL 1,000 ML IV SCH (22:03)
[2019-12-09 23:45] VITALS: BP 131/78
[2019-12-09] MEDS: CEFAZOLIN PMX 2GM/50ML 50 ML IVPB SCH (23:49)
[2019-12-10] MEDS: HYDROmorphone 1 MG/ML, 1ML INJ IV PRN ×4 (00:12→20:48)
[2019-12-10] MEDS: OXYcodone IR 5MG TABLET PO PRN ×5 (02:29→23:19)
[2019-12-10 03:49] VITALS: BP 126/73
[2019-12-10] MEDS ORDERED: DEXAMETHASONE 4 MG/ML, 1ML IVPush SCH (06:00)
[2019-12-10 06:13] LABS: HCT (SEDRATE) 30.8 % (39.2-51.8)
[2019-12-10 06:25] LABS: ANION GAP 7 mmol/L (5-15); CALCIUM 7.9 mg/dL (8.5-10.1); CHLORIDE 104 mmol/L (98-107)
[2019-12-10] MEDS: OMEPRAZOLE 20 MG CAPSULE.DR PO SCH (06:46)
[2019-12-10] MEDS: ASPIRIN 81 MG TABLET EC PO SCH ×2 (06:46→18:33)
[2019-12-10] MEDS: ACETAMINOPHEN 650 MG/20.3 ML UDC PO SCH (06:47)
[2019-12-10 07:28] LABS: MEAN CORPUSCULAR HGB CONC 32.9 g/dL (33.2-36.2); MEAN CORPUSCULAR VOLUME 81.9 fL (81-97); PLATELET COUNT 249 x10^3/uL (130-400); RED BLOOD COUNT 3.81 x10^6/uL (4.38-5.82); RED CELL DISTRIBUTION WIDTH 16.4 % (9.4-14.8)
[2019-12-10] MEDS: ALLOPURINOL 300 MG TABLET PO SCH (07:48)
[2019-12-10] MEDS: DOCUSATE 100 MG CAPSULE PO SCH ×2 (07:48→20:48)
[2019-12-10] MEDS: metFORMIN 500 MG TABLET PO SCH (07:48)
[2019-12-10] MEDS: ADVAIR INH SCH ×2 (07:48→20:55)
[2019-12-10] MEDS: GLIPizide ER 5 MG TABLET PO SCH (07:48)
[2019-12-10] MEDS: CEFAZOLIN PMX 2GM/50ML 50 ML IVPB SCH (07:51)
[2019-12-10] MEDS: INSULIN LISPRO 100 UNITS/ML, PEN SQ-INSULIN SCH ×4 (07:52→21:09)
[2019-12-10 07:57] VITALS: BP 135/80
[2019-12-10 08:18] LABS: BASOPHILS # (AUTO) 0.03 x10^3/uL (0-0.1); BASOPHILS % (AUTO) 0 % (0-1); EOSINOPHILS # (AUTO) 0.07 x10^3/uL (0-0.4); EOSINOPHILS % (AUTO) 1 % (1-7); LYMPHOCYTES # (AUTO) 0.44 x10^3/uL (1-3.4); LYMPHOCYTES % (AUTO) 5 % (22-44); MD SCAN; MONOCYTES # (AUTO) 0.49 x10^3/uL (0.2-0.8); MONOCYTES % (AUTO) 5 % (2-9); NEUTROPHILS # (AUTO) 8.33 x10^3/uL (1.8-6.8); NEUTROPHILS % (AUTO) 89 % (42-75)
[2019-12-10] MEDS ORDERED: ACETAMINOPHEN 500 MG TABLET ONE (10:47)
[2019-12-10] MEDS: NS + 20MEQ KCL 1,000 ML IV SCH ×2 (10:56→22:30)
[2019-12-10] MEDS ORDERED: ACETAMINOPHEN 500 MG TABLET PO SCH (11:00)
[2019-12-10] MEDS: ACETAMINOPHEN 500 MG TABLET PO SCH ×2 (12:47→18:33)
[2019-12-10 13:18] VITALS: BP 153/75
[2019-12-10] MEDS ORDERED: METF10007 PO (13:59)
[2019-12-10] MEDS ORDERED: metFORMIN 500 MG TABLET PO SCH (17:00)
[2019-12-10 20:14] VITALS: BP 145/75
[2019-12-10] MEDS: MONTELUKAST 10 MG TABLET PO SCH (20:48)
[2019-12-10] MEDS: LOVASTATIN 20 MG TABLET PO SCH (20:48)
[2019-12-10] MEDS: [UNRECOGNIZED DRUG - OTHER] HOMEINJ SCH (20:54)
[2019-12-10] MEDS: INSULIN GLARGINE HOMEINJ SCH (20:54)
[2019-12-10] MEDS: CYCLOBENZAPRINE 10 MG TABLET PO PRN (21:59)
[2019-12-11 03:19] VITALS: BP 131/75
[2019-12-11] MEDS: OXYcodone IR 5MG TABLET PO PRN ×4 (03:28→23:20)
[2019-12-11] MEDS: ACETAMINOPHEN 500 MG TABLET PO SCH ×4 (03:28→23:19)
[2019-12-11 06:04] LABS: BASOPHILS # (AUTO) 0.01 x10^3/uL (0-0.1); BASOPHILS % (AUTO) 0 % (0-1); EOSINOPHILS # (AUTO) 0.35 x10^3/uL (0-0.4); EOSINOPHILS % (AUTO) 6 % (1-7); LYMPHOCYTES # (AUTO) 1.13 x10^3/uL (1-3.4); LYMPHOCYTES % (AUTO) 18 % (22-44); MD NO; MEAN CORPUSCULAR HEMOGLOBIN 27.2 pg (27.5-34.5); MEAN CORPUSCULAR VOLUME 82.3 fL (81-97); MEAN PLATELET VOLUME 7.9 fL (7.4-10.4); MONOCYTES % (AUTO) 10 % (2-9); NEUTROPHILS % (AUTO) 67 % (42-75); PLATELET COUNT 219 x10^3/uL (130-400); RED BLOOD COUNT 3.69 x10^6/uL (4.38-5.82); RED CELL DISTRIBUTION WIDTH 16.8 % (9.4-14.8)
[2019-12-11 06:14] LABS: CHLORIDE 107 mmol/L (98-107)
[2019-12-11 06:20] LABS: ANION GAP 9 mmol/L (5-15); CALCIUM 8.1 mg/dL (8.5-10.1); CREATININE 2.13 mg/dL (0.7-1.3)
[2019-12-11] MEDS: OMEPRAZOLE 20 MG CAPSULE.DR PO SCH (06:22)
[2019-12-11] MEDS: ASPIRIN 81 MG TABLET EC PO SCH ×2 (06:22→18:04)
[2019-12-11] MEDS ORDERED: PHARMACOKINETIC CONSULTATION MC ONE (07:00)
[2019-12-11] MEDS ORDERED: PHARMACOKINETIC MONITORING MC PRN (07:00)
[2019-12-11] MEDS ORDERED: VANCOMYCIN PER PHARMACY MC PRN (07:00)
[2019-12-11 07:03] VITALS: BP 148/77
[2019-12-11] MEDS: VANCOMYCIN 2,300 MG in SODIUM CHLORIDE 0.9% 500 ML IV SCH (08:15)
[2019-12-11] MEDS: DOCUSATE 100 MG CAPSULE PO SCH ×2 (08:15→20:47)
[2019-12-11] MEDS: ALLOPURINOL 300 MG TABLET PO SCH (08:15)
[2019-12-11] MEDS: GLIPizide ER 5 MG TABLET PO SCH (08:16)
[2019-12-11] MEDS: ADVAIR INH SCH ×2 (08:17→20:48)
[2019-12-11] MEDS: INSULIN LISPRO 100 UNITS/ML, PEN SQ-INSULIN SCH ×4 (08:23→21:26)
[2019-12-11] MEDS: NS + 20MEQ KCL 1,000 ML IV SCH ×2 (10:27→23:30)
[2019-12-11 12:14] VITALS: BP 154/82
[2019-12-11] MEDS ORDERED: ALBUTEROL SULFATE 2.5 MG/3 ML NPPB PRN (15:30)
[2019-12-11] MEDS: metFORMIN 500 MG TABLET PO SCH (20:47)
[2019-12-11] MEDS: LOVASTATIN 20 MG TABLET PO SCH (20:47)
[2019-12-11] MEDS: MONTELUKAST 10 MG TABLET PO SCH (20:48)
[2019-12-11] MEDS: INSULIN GLARGINE HOMEINJ SCH (20:48)
[2019-12-11] MEDS: [UNRECOGNIZED DRUG - OTHER] HOMEINJ SCH (20:48)
[2019-12-11 21:22] VITALS: BP 144/82
[2019-12-12] MEDS: HYDROmorphone 1 MG/ML, 1ML INJ IV PRN ×2 (00:14→21:16)
[2019-12-12 01:00] VITALS: BP 130/79
[2019-12-12] MEDS: OXYcodone IR 5MG TABLET PO PRN ×5 (03:45→21:48)
[2019-12-12] MEDS: OMEPRAZOLE 20 MG CAPSULE.DR PO SCH (06:10)
[2019-12-12] MEDS: ASPIRIN 81 MG TABLET EC PO SCH ×2 (06:10→17:48)
[2019-12-12 06:44] LABS: BASOPHILS # (AUTO) 0.04 x10^3/uL (0-0.1); BASOPHILS % (AUTO) 1 % (0-1); EOSINOPHILS % (AUTO) 6 % (1-7); LYMPHOCYTES # (AUTO) 1.38 x10^3/uL (1-3.4); LYMPHOCYTES % (AUTO) 20 % (22-44); MD NO; MEAN CORPUSCULAR HEMOGLOBIN 26.9 pg (27.5-34.5); MEAN CORPUSCULAR HGB CONC 32.8 g/dL (33.2-36.2); MEAN PLATELET VOLUME 7.8 fL (7.4-10.4); MONOCYTES # (AUTO) 0.74 x10^3/uL (0.2-0.8); MONOCYTES % (AUTO) 11 % (2-9); NEUTROPHILS # (AUTO) 4.42 x10^3/uL (1.8-6.8); NEUTROPHILS % (AUTO) 63 % (42-75); PLATELET COUNT 245 x10^3/uL (130-400); RED BLOOD COUNT 3.95 x10^6/uL (4.38-5.82); RED CELL DISTRIBUTION WIDTH 16.6 % (9.4-14.8)
[2019-12-12 06:48] LABS: ANION GAP 7 mmol/L (5-15); CALCIUM 8.3 mg/dL (8.5-10.1); CHLORIDE 108 mmol/L (98-107); CREATININE 1.98 mg/dL (0.7-1.3)
[2019-12-12] MEDS: INSULIN LISPRO 100 UNITS/ML, PEN SQ-INSULIN SCH ×4 (07:00→21:27)
[2019-12-12 07:35] VITALS: BP 150/83
[2019-12-12] MEDS: ALLOPURINOL 300 MG TABLET PO SCH (08:25)
[2019-12-12] MEDS: ADVAIR INH SCH ×2 (08:25→21:18)
[2019-12-12] MEDS: GLIPizide ER 5 MG TABLET PO SCH (08:25)
[2019-12-12] MEDS: ACETAMINOPHEN 500 MG TABLET PO SCH ×3 (08:25→21:17)
[2019-12-12] MEDS: DOCUSATE 100 MG CAPSULE PO SCH ×2 (08:25→21:17)
[2019-12-12] MEDS: NS + 20MEQ KCL 1,000 ML IV SCH (11:49)
[2019-12-12 14:35] VITALS: BP 155/78
[2019-12-12 20:04] VITALS: BP 151/76
[2019-12-12] MEDS: metFORMIN 500 MG TABLET PO SCH (21:17)
[2019-12-12] MEDS: INSULIN GLARGINE HOMEINJ SCH (21:17)
[2019-12-12] MEDS: [UNRECOGNIZED DRUG - OTHER] HOMEINJ SCH (21:17)
[2019-12-12] MEDS: LOVASTATIN 20 MG TABLET PO SCH (21:17)
[2019-12-12] MEDS: MONTELUKAST 10 MG TABLET PO SCH (21:17)
[2019-12-12] MEDS: VANCOMYCIN 2,300 MG in SODIUM CHLORIDE 0.9% 500 ML IV SCH (21:47)
[2019-12-13] MEDS: NS + 20MEQ KCL 1,000 ML IV SCH ×2 (00:30→11:48)
[2019-12-13 01:44] VITALS: BP 148/79
[2019-12-13] MEDS: OXYcodone IR 5MG TABLET PO PRN ×5 (02:17→18:14)
[2019-12-13] MEDS: ACETAMINOPHEN 500 MG TABLET PO SCH ×3 (06:17→18:14)
[2019-12-13] MEDS: ASPIRIN 81 MG TABLET EC PO SCH ×2 (06:17→18:13)
[2019-12-13] MEDS: OMEPRAZOLE 20 MG CAPSULE.DR PO SCH (06:17)
[2019-12-13] MEDS: INSULIN LISPRO 100 UNITS/ML, PEN SQ-INSULIN SCH ×4 (06:20→21:00)
[2019-12-13 07:16] VITALS: BP 167/85
[2019-12-13] MEDS: DOCUSATE 100 MG CAPSULE PO SCH ×2 (09:02→21:26)
[2019-12-13] MEDS: GLIPizide ER 5 MG TABLET PO SCH (09:02)
[2019-12-13] MEDS: ALLOPURINOL 300 MG TABLET PO SCH (09:02)
[2019-12-13] MEDS: ADVAIR INH SCH ×2 (09:03→21:00)
[2019-12-13 13:03] VITALS: BP 149/80
[2019-12-13 13:13] LABS: ANION GAP 11 mmol/L (5-15); CALCIUM 8.3 mg/dL (8.5-10.1); CHLORIDE 106 mmol/L (98-107); CREATININE 2.06 mg/dL (0.7-1.3)
[2019-12-13 20:14] VITALS: BP 159/79
[2019-12-13] MEDS: INSULIN GLARGINE HOMEINJ SCH (21:00)
[2019-12-13] MEDS: [UNRECOGNIZED DRUG - OTHER] HOMEINJ SCH (21:00)
[2019-12-13] MEDS: LOVASTATIN 20 MG TABLET PO SCH (21:26)
[2019-12-13] MEDS: MONTELUKAST 10 MG TABLET PO SCH (21:26)
[2019-12-13] MEDS: metFORMIN 500 MG TABLET PO SCH (21:26)
[2019-12-13] MEDS: HYDROmorphone 1 MG/ML, 1ML INJ IV PRN (21:28)
[2019-12-14] MEDS: NS + 20MEQ KCL 1,000 ML IV SCH ×2 (00:35→11:13)
[2019-12-14] MEDS: ACETAMINOPHEN 500 MG TABLET PO SCH ×5 (03:01→16:12)
[2019-12-14] MEDS: OXYcodone IR 5MG TABLET PO PRN ×3 (03:02→16:12)
[2019-12-14 03:07] VITALS: BP 157/76
[2019-12-14] MEDS: ASPIRIN 81 MG TABLET EC PO SCH (05:59)
[2019-12-14] MEDS: OMEPRAZOLE 20 MG CAPSULE.DR PO SCH (06:00)
[2019-12-14 06:32] LABS: ANION GAP 6 mmol/L (5-15); CALCIUM 8.8 mg/dL (8.5-10.1); CHLORIDE 107 mmol/L (98-107)
[2019-12-14 06:49] VITALS: BP 164/80
[2019-12-14] MEDS: INSULIN LISPRO 100 UNITS/ML, PEN SQ-INSULIN SCH ×4 (07:07→16:12)
[2019-12-14] MEDS: VANCOMYCIN 2,300 MG in SODIUM CHLORIDE 0.9% 500 ML IV SCH (08:13)
[2019-12-14] MEDS: ALLOPURINOL 300 MG TABLET PO SCH (09:07)
[2019-12-14] MEDS: DOCUSATE 100 MG CAPSULE PO SCH (09:07)
[2019-12-14] MEDS: GLIPizide ER 5 MG TABLET PO SCH (09:08)
[2019-12-14] MEDS: ADVAIR INH SCH (09:08)
[2019-12-14 13:11] VITALS: BP 165/79
== END 2019-12-14 17:05 | disposition home health service (06) | DRG 467 ==
LOC: ORIP 10:56 → 4NE 18:35 → DCLOUNGE 12-14 16:54
PROVIDERS: ADMIT Orthopaedic Surgery; ATTEND Orthopaedic Surgery
PROC: 0SRC0J9 Replacement of Right Knee Joint with Synthetic Substitute, Cemented, Open Approach (ICD-10-PCS; 2019-12-09)
PROC: 3E0T3BZ Introduction of Anesthetic Agent into Peripheral Nerves and Plexi, Percutaneous Approach (ICD-10-PCS; 2019-12-09)
PROC: 0SPC0JZ Removal of Synthetic Substitute from Right Knee Joint, Open Approach (ICD-10-PCS; principal; 2019-12-09 15:45)
PROC: 02HV33Z Insertion of Infusion Device into Superior Vena Cava, Percutaneous Approach (ICD-10-PCS; 2019-12-11)
PROC: B5181ZA Fluoroscopy of Superior Vena Cava using Low Osmolar Contrast, Guidance (ICD-10-PCS; 2019-12-11)
PROC: B548ZZA Ultrasonography of Superior Vena Cava, Guidance (ICD-10-PCS; 2019-12-11)
DX: T84.53XA Infection and inflammatory reaction due to internal right knee prosthesis, initial encounter (principal); J44.0 Chronic obstructive pulmonary disease with (acute) lower respiratory infection; J82 Pulmonary eosinophilia, not elsewhere classified; D63.8 Anemia in other chronic diseases classified elsewhere; E11.22 Type 2 diabetes mellitus with diabetic chronic kidney disease; I12.9 Hypertensive chronic kidney disease with stage 1 through stage 4 chronic kidney disease, or unspecified chronic kidney disease; K21.9 Gastro-esophageal reflux disease without esophagitis; E66.9 Obesity, unspecified; E78.5 Hyperlipidemia, unspecified; M10.9 Gout, unspecified; N18.9 Chronic kidney disease, unspecified; Y83.8 Other surgical procedures as the cause of abnormal reaction of the patient, or of later complication, without mention of misadventure at the time of the procedure; Z79.4 Long term (current) use of insulin; Z82.5 Family history of asthma and other chronic lower respiratory diseases; Z83.3 Family history of diabetes mellitus; Z86.19 Personal history of other infectious and parasitic diseases; Z86.14 Personal history of Methicillin resistant Staphylococcus aureus infection; Z90.49 Acquired absence of other specified parts of digestive tract; Z79.899 Other long term (current) drug therapy; Y92.89 Other specified places as the place of occurrence of the external cause; Z68.34 Body mass index [BMI] 34.0-34.9, adult
CPT/HCPCS: 36415; 73564; 89051; J3260; 36573; 80048; 80053; 82947; 82962; 83036; 85014; 85018; 85025; 85610; 85651; 85730; 86140; 86850; 86900; 87070; 87075; 87081; 87102; 87205; 93005; C1713; G0378; J0171; J0690; J1100; J1170; J1885; J2250; J2405; J2704; J2710; J2795; J3010; J3370; J3480; C1751; C1776; J0330; J1815; J7040; J7120

== ENCOUNTER 2020-01-27 05:24 | Inpatient (IN) | payer OTHER ==
[~2020-01-27] VITALS: Ht 188 cm; Wt 123.6 kg
[~2020-01-27 05:24] MED LIST changes: -EPINEPHRINE 1 MG/ML, 1ML ONE; +ERTA1VIA IV; -KETOROLAC 60 MG/2 ML ONE; +METF10007 PO; -ROPIvacaine/PF 0.5%, 20 ML ONE; -ROPIvacaine/PF 0.5%, 30 ML ONE; -SODIUM CHLORIDE 0.9% 50 ML ONE; -TRANEXAMIC ACID 100 MG/ML, 10ML ONE; -VANCOMYCIN 1,000 MG ONE
[2020-01-27] MEDS ORDERED: VANCOMYCIN PER PHARMACY MC ONE (05:37)
[2020-01-27] MEDS ORDERED: LACTATED RINGERS 1,000 ML IV SCH (05:37)
[2020-01-27] MEDS ORDERED: LIDOCAINE-MPF 1%, 2ML INFIL ONE (06:00)
[2020-01-27] MEDS ORDERED: GABAPENTIN 300 MG CAPSULE PO ONE (06:00)
[2020-01-27] MEDS ORDERED: VANCOMYCIN 2,000 MG in SODIUM CHLORIDE 0.9% 500 ML IV ONE (06:00)
[2020-01-27] MEDS ORDERED: ACETAMINOPHEN 500 MG TABLET PO ONE (06:00)
[2020-01-27] MEDS ORDERED: KETOROLAC 60 MG/2 ML ONE (06:16)
[2020-01-27] MEDS ORDERED: VANCOMYCIN 1,000 MG ONE (06:16)
[2020-01-27] MEDS ORDERED: SODIUM CHLORIDE 0.9% 50 ML ONE (06:16)
[2020-01-27] MEDS ORDERED: EPINEPHRINE 1 MG/ML, 1ML ONE (06:16)
[2020-01-27] MEDS ORDERED: ROPIvacaine/PF 0.5%, 30 ML ONE (06:16)
[2020-01-27] MEDS ORDERED: TRANEXAMIC ACID 100 MG/ML, 10ML ONE ×2 (06:16)
[2020-01-27] MEDS ORDERED: MIDAZOLAM 1 MG/ML, 2ML ONE (06:25)
[2020-01-27] MEDS ORDERED: FENTANYL PF 250 MCG/5ML ONE ×2 (06:27→07:40)
[2020-01-27 06:41] VITALS: BP 169/94
[2020-01-27] MEDS ORDERED: ZOLPIDEM 5MG TABLET PO PRN (07:00)
[2020-01-27] MEDS ORDERED: CEFAZOLIN PMX 2GM/50ML 50 ML IVPB SCH (07:00)
[2020-01-27] MEDS ORDERED: SENNA/DOCUSATE TABLET PO PRN (07:00)
[2020-01-27] MEDS ORDERED: CYCLOBENZAPRINE 10 MG TABLET PO PRN (07:00)
[2020-01-27] MEDS ORDERED: ONDANSETRON 2MG/ML, 2ML IV PRN (07:00)
[2020-01-27] MEDS ORDERED: OXYcodone IR 5MG TABLET PO PRN (07:00)
[2020-01-27] MEDS ORDERED: CETIRIZINE 10 MG TABLET PO PRN (07:00)
[2020-01-27] MEDS ORDERED: ONDANSETRON 4 MG TABLET PO PRN (07:00)
[2020-01-27] MEDS ORDERED: ACETAMINOPHEN 650 MG/20.3 ML UDC PO PRN (07:00)
[2020-01-27] MEDS ORDERED: DIPHENHYDRAMINE 50 MG CAPSULE PO PRN (07:00)
[2020-01-27] MEDS ORDERED: BISACODYL 10 MG SUPP PR PRN (07:00)
[2020-01-27] MEDS ORDERED: MAGNESIUM HYDROXIDE 8%, 30ML UDC PO PRN (07:00)
[2020-01-27] MEDS ORDERED: ROCURONIUM 10 MG/ML,10ML ONE (07:20)
[2020-01-27] MEDS ORDERED: SUCCINYLCHOLINE 20 MG/ML, 10ML ONE (07:20)
[2020-01-27] MEDS ORDERED: PROPOFOL 10 MG/ML, 20ML ONE (08:58)
[2020-01-27] MEDS ORDERED: DEXAMETHASONE 4 MG/ML, 1ML ONE (08:58)
[2020-01-27] MEDS ORDERED: ONDANSETRON 2MG/ML, 2ML ONE (08:58)
[2020-01-27] MEDS ORDERED: CEFAZOLIN 1,000 MG ONE (08:58)
[2020-01-27] MEDS ORDERED: BUPIVACAINE/PF 0.5% ONE (08:59)
[2020-01-27] MEDS ORDERED: BUPIVACAINE/PF 0.25% ONE (08:59)
[2020-01-27] MEDS: DOCUSATE 100 MG CAPSULE PO SCH ×2 (09:00→21:28)
[2020-01-27] MEDS: GLIPizide ER 5 MG TABLET PO SCH (09:00)
[2020-01-27] MEDS: OMEPRAZOLE 20 MG CAPSULE.DR PO SCH (09:00)
[2020-01-27] MEDS: ALLOPURINOL 300 MG TABLET PO SCH (09:00)
[2020-01-27] MEDS ORDERED: LABETALOL 5MG/ML, 20ML ONE (09:24)
[2020-01-27] MEDS: LABETALOL 5MG/ML, 20ML IV PRN ×2 (09:28→09:35)
[2020-01-27] MEDS ORDERED: HYDROmorphone 2 MG/ML, 1ML IVPush PRN (09:30)
[2020-01-27] MEDS ORDERED: hydrALAzine 20 MG/ML, 1ML IV PRN (09:30)
[2020-01-27] MEDS ORDERED: PROMETHAZINE 25 MG/ML, 1ML IV PRN (09:30)
[2020-01-27] MEDS ORDERED: MIDAZOLAM 1 MG/ML, 2ML IV PRN (09:30)
[2020-01-27] MEDS ORDERED: OXYcodone 5 MG/5 ML ORAL.SOL UDC PO PRN (09:30)
[2020-01-27] MEDS ORDERED: MEPERIDINE/PF 25MG/ML,1ML IVPush PRN (09:30)
[2020-01-27] MEDS ORDERED: LORazepam 2 MG/ML, 1ML IVPush PRN (09:30)
[2020-01-27] MEDS ORDERED: METOPROLOL 1 MG/ML, 5ML IV PRN (09:30)
[2020-01-27] MEDS ORDERED: FENTANYL PF 100 MCG/2ML IV PRN (09:30)
[2020-01-27] MEDS ORDERED: ACETAMINOPHEN 325 MG TABLET PO PRN (09:30)
[2020-01-27] MEDS ORDERED: ALBUTEROL/IPRATROPIUM 2.5MG/0.5MG, 3 ML NPPB PRN (09:30)
[2020-01-27] MEDS ORDERED: OXYcodone 5 MG/5 ML ORAL.SOL UDC ONE (09:40)
[2020-01-27] MEDS ORDERED: FENTANYL PF 100 MCG/2ML ONE (09:40)
[2020-01-27] MEDS: HYDROmorphone 1 MG/ML, 1ML INJ IV PRN ×2 (10:50→14:00)
[2020-01-27] MEDS: INSULIN LISPRO 100 UNITS/ML, PEN SQ-INSULIN SCH ×3 (11:00→21:00)
[2020-01-27] MEDS: NS + 20MEQ KCL 1,000 ML IV SCH ×2 (12:09→22:52)
[2020-01-27] MEDS: CEFAZOLIN PMX 2GM/50ML 50 ML IVPB SCH ×2 (15:04→22:41)
[2020-01-27] MEDS: ASPIRIN 81 MG TABLET EC PO SCH (18:03)
[2020-01-27] MEDS: HYDROcodone/APAP 5/325 TABLET PO PRN ×2 (18:03→22:41)
[2020-01-27 18:15] VITALS: BP 162/89
[2020-01-27] MEDS ORDERED: INSULIN GLARGINE HUM REC ANLOG 120 UNIT SQ SCH ×2 (21:00→23:13)
[2020-01-27] MEDS: MONTELUKAST 10 MG TABLET PO SCH (21:27)
[2020-01-27] MEDS: metFORMIN XR 500 MG TAB.ER.24H PO SCH (21:27)
[2020-01-27] MEDS: LOVASTATIN 20 MG TABLET PO SCH (21:28)
[2020-01-27 23:19] VITALS: BP 129/71
[2020-01-28] MEDS: HYDROmorphone 1 MG/ML, 1ML INJ IV PRN (00:08)
[2020-01-28 04:44] VITALS: BP 119/69
[2020-01-28] MEDS: ASPIRIN 81 MG TABLET EC PO SCH ×2 (05:57→18:44)
[2020-01-28] MEDS: HYDROcodone/APAP 5/325 TABLET PO PRN ×4 (05:57→20:20)
[2020-01-28] MEDS: CEFAZOLIN PMX 2GM/50ML 50 ML IVPB SCH (06:38)
[2020-01-28 07:19] VITALS: BP 143/76
[2020-01-28] MEDS: INSULIN LISPRO 100 UNITS/ML, PEN SQ-INSULIN SCH ×4 (08:00→20:24)
[2020-01-28] MEDS: ALLOPURINOL 300 MG TABLET PO SCH (09:23)
[2020-01-28] MEDS: DOCUSATE 100 MG CAPSULE PO SCH ×2 (09:23→20:20)
[2020-01-28] MEDS: OMEPRAZOLE 20 MG CAPSULE.DR PO SCH (09:23)
[2020-01-28] MEDS: GLIPizide ER 5 MG TABLET PO SCH (09:23)
[2020-01-28] MEDS: NS + 20MEQ KCL 1,000 ML IV SCH (13:00)
[2020-01-28] MEDS: ERTAPENEM 1 GM in SODIUM CHLORIDE 0.9% 50 ML IV SCH (13:25)
[2020-01-28 14:42] VITALS: BP 162/77
[2020-01-28] MEDS: LOVASTATIN 20 MG TABLET PO SCH (20:20)
[2020-01-28] MEDS: MONTELUKAST 10 MG TABLET PO SCH (20:20)
[2020-01-28] MEDS: metFORMIN XR 500 MG TAB.ER.24H PO SCH (20:20)
[2020-01-28 20:32] VITALS: BP 149/79
[2020-01-29 00:48] VITALS: BP 146/80
[2020-01-29] MEDS: HYDROcodone/APAP 5/325 TABLET PO PRN ×3 (00:54→16:31)
[2020-01-29] MEDS: NS + 20MEQ KCL 1,000 ML IV SCH ×2 (01:30→14:00)
[2020-01-29] MEDS: ASPIRIN 81 MG TABLET EC PO SCH ×2 (06:15→18:26)
[2020-01-29] MEDS: INSULIN LISPRO 100 UNITS/ML, PEN SQ-INSULIN SCH ×3 (07:00→16:40)
[2020-01-29 07:21] VITALS: BP 134/77
[2020-01-29] MEDS: ALLOPURINOL 300 MG TABLET PO SCH (08:46)
[2020-01-29] MEDS: DOCUSATE 100 MG CAPSULE PO SCH (08:46)
[2020-01-29] MEDS: OMEPRAZOLE 20 MG CAPSULE.DR PO SCH (08:46)
[2020-01-29] MEDS: GLIPizide ER 5 MG TABLET PO SCH (08:47)
[2020-01-29] MEDS: ERTAPENEM 1 GM in SODIUM CHLORIDE 0.9% 50 ML IV SCH (12:20)
[2020-01-29 12:43] VITALS: BP 146/78
[2020-01-29 13:20] LABS: BASOPHILS # (AUTO) 0.02 x10^3/uL (0-0.1); BASOPHILS % (AUTO) 1 % (0-1); EOSINOPHILS # (AUTO) 0.28 x10^3/uL (0-0.4); EOSINOPHILS % (AUTO) 6 % (1-7); LYMPHOCYTES # (AUTO) 0.72 x10^3/uL (1-3.4); LYMPHOCYTES % (AUTO) 16 % (22-44); MD NO; MEAN CORPUSCULAR HEMOGLOBIN 26.6 pg (27.5-34.5); MEAN CORPUSCULAR HGB CONC 32.5 g/dL (33.2-36.2); MEAN CORPUSCULAR VOLUME 81.9 fL (81-97); MEAN PLATELET VOLUME 7.8 fL (7.4-10.4); MONOCYTES # (AUTO) 0.52 x10^3/uL (0.2-0.8); MONOCYTES % (AUTO) 12 % (2-9); NEUTROPHILS # (AUTO) 2.88 x10^3/uL (1.8-6.8); NEUTROPHILS % (AUTO) 65 % (42-75); PLATELET COUNT 152 x10^3/uL (130-400); RED BLOOD COUNT 3.51 x10^6/uL (4.38-5.82); RED CELL DISTRIBUTION WIDTH 17.2 % (9.4-14.8)
[2020-01-29 13:30] LABS: ALANINE AMINOTRANSFERASE 27 U/L (12-78); ALBUMIN 2.7 g/dL (3.4-5.0); ANION GAP 8 mmol/L (5-15); CALCIUM 8.3 mg/dL (8.5-10.1); CHLORIDE 108 mmol/L (98-107); CREATININE 2.04 mg/dL (0.7-1.3)
[2020-01-29 13:32] LABS: ALKALINE PHOSPHATASE 132 U/L (45-117); BILIRUBIN,TOTAL 0.6 mg/dL (0.2-1.0); CREATINE KINASE, TOTAL 94 U/L (39-308); TOTAL PROTEIN 6.5 g/dL (6.4-8.2)
[2020-01-29] MEDS ORDERED: PICC FLUSH PROTOCOL XX PRN (16:00)
[2020-01-29] MEDS ORDERED: metFORMIN XR 500 MG TAB.ER.24H PO SCH (17:00)
== END 2020-01-29 19:08 | disposition home health service (06) | DRG 468 ==
LOC: ORIP 05:24 → 4NE 10:29
PROVIDERS: ADMIT Orthopaedic Surgery; ATTEND Orthopaedic Surgery
PROC: 0SWC0JZ Revision of Synthetic Substitute in Right Knee Joint, Open Approach (ICD-10-PCS; principal; 2020-01-27 07:00)
PROC: 06HY33Z Insertion of Infusion Device into Lower Vein, Percutaneous Approach (ICD-10-PCS; 2020-01-29)
DX: T84.53XA Infection and inflammatory reaction due to internal right knee prosthesis, initial encounter (principal); D63.8 Anemia in other chronic diseases classified elsewhere; E11.9 Type 2 diabetes mellitus without complications; I10 Essential (primary) hypertension; J44.9 Chronic obstructive pulmonary disease, unspecified; Y83.9 Surgical procedure, unspecified as the cause of abnormal reaction of the patient, or of later complication, without mention of misadventure at the time of the procedure; Z79.4 Long term (current) use of insulin; Z83.3 Family history of diabetes mellitus; Z82.5 Family history of asthma and other chronic lower respiratory diseases; Z86.19 Personal history of other infectious and parasitic diseases; Z90.49 Acquired absence of other specified parts of digestive tract; M10.9 Gout, unspecified; Z96.651 Presence of right artificial knee joint
CPT/HCPCS: 36415; 73560; S0020; 36573; 80053; 82550; 82962; 83036; 85014; 85018; 85025; 86850; 86870; 86880; 86900; 86922; 86923; 87070; 87075; 87205; C1713; G0378; J0171; J0690; J1100; J1170; J1335; J1885; J2250; J2405; J2704; J2795; J3010; J3370; J3480; J3490; C1751; C1762; C1776; J0330; J1815; J7040; J7120

== ENCOUNTER 2020-12-23 09:34 | Day surgery (SDC) | payer OTHER ==
[~2020-12-23] VITALS: Ht 188 cm; Wt 119.1 kg
[~2020-12-23 09:34] MED LIST changes: -CYCL-259 PO; +CYCL10TA2 PO; -MONT10TA11 PO; +MONT10TA17 PO
[2020-12-23 10:10] VITALS: BP 168/92
[2020-12-23] MEDS ORDERED: SODIUM CHLORIDE 0.9% 1,000 ML IV SCH (10:30)
[2020-12-23 10:48] LABS: INTERNATIONAL NORMALIZED RATIO 1.08 (0.93-1.1); PROTHROMBIN TIME 11.5 Seconds (9.6-11.5)
[2020-12-23] MEDS ORDERED: FENTANYL PF 100 MCG/2ML ONE (11:51)
[2020-12-23] MEDS ORDERED: MIDAZOLAM 1 MG/ML, 5ML ONE ×2 (11:51)
[2020-12-23] MEDS ORDERED: FLUMAZENIL 0.1 MG/1 ML, 5ML ONE (11:51)
[2020-12-23] MEDS ORDERED: NALOXONE 1 MG/ML, 2ML ONE (11:51)
== END 2020-12-23 13:10 | disposition home or self-care (01) ==
LOC: OUT 09:34
PROVIDERS: ATTEND Internal Medicine Nephrology
DX: E11.22 Type 2 diabetes mellitus with diabetic chronic kidney disease (principal); I12.9 Hypertensive chronic kidney disease with stage 1 through stage 4 chronic kidney disease, or unspecified chronic kidney disease; N18.4 Chronic kidney disease, stage 4 (severe); J45.909 Unspecified asthma, uncomplicated; G47.30 Sleep apnea, unspecified; Z79.84 Long term (current) use of oral hypoglycemic drugs; Z79.899 Other long term (current) drug therapy; Z83.3 Family history of diabetes mellitus; Z82.49 Family history of ischemic heart disease and other diseases of the circulatory system; Z83.6 Family history of other diseases of the respiratory system
CPT/HCPCS: 36415; 50200; 77012; 85610; 99156; J2250; J3010; J2310

== ENCOUNTER 2021-01-06 06:01 | Day surgery (SDC) | payer OTHER ==
[~2021-01-06] VITALS: Ht 188 cm; Wt 121.6 kg
[2021-01-06 07:17] VITALS: BP 147/82
[2021-01-06] MEDS ORDERED: SODIUM CHLORIDE 0.9% 1,000 ML IV SCH (07:30)
[2021-01-06 07:32] LABS: INTERNATIONAL NORMALIZED RATIO 1.07 (0.93-1.1); PROTHROMBIN TIME 11.4 Seconds (9.6-11.5)
[2021-01-06] MEDS ORDERED: FENTANYL PF 100 MCG/2ML ONE (08:31)
[2021-01-06] MEDS ORDERED: NALOXONE 1 MG/ML, 2ML ONE (08:31)
[2021-01-06] MEDS ORDERED: FLUMAZENIL 0.1 MG/1 ML, 5ML ONE (08:31)
[2021-01-06] MEDS ORDERED: MIDAZOLAM 1 MG/ML, 5ML ONE ×2 (08:31)
== END 2021-01-06 10:00 | disposition home or self-care (01) ==
LOC: OUT 06:01
PROVIDERS: ATTEND Internal Medicine Nephrology
DX: N12 Tubulo-interstitial nephritis, not specified as acute or chronic (principal); E11.21 Type 2 diabetes mellitus with diabetic nephropathy; I12.9 Hypertensive chronic kidney disease with stage 1 through stage 4 chronic kidney disease, or unspecified chronic kidney disease; E11.22 Type 2 diabetes mellitus with diabetic chronic kidney disease; N18.4 Chronic kidney disease, stage 4 (severe); G47.30 Sleep apnea, unspecified; Z88.2 Allergy status to sulfonamides; Z88.1 Allergy status to other antibiotic agents; Z79.899 Other long term (current) drug therapy; Z79.82 Long term (current) use of aspirin; Z90.49 Acquired absence of other specified parts of digestive tract; Z98.890 Other specified postprocedural states; Z72.89 Other problems related to lifestyle; Z79.4 Long term (current) use of insulin
CPT/HCPCS: 36415; 50200; 77012; 85610; 88300; 99156; 99157; J2250; J3010; J7030; J2310

== ENCOUNTER → 2021-02-20 | Outpatient (CLI) | payer OTHER ==
[2021-02-20 08:07] LABS: MICROSCOPIC AUTO
[2021-02-20 08:10] LABS: BASOPHILS % (AUTO) 1 % (0-1); EOSINOPHILS % (AUTO) 4 % (1-7); LYMPHOCYTES % (AUTO) 22 % (22-44); MEAN CORPUSCULAR HGB CONC 33.4 g/dL (33.2-36.2); MEAN PLATELET VOLUME 8.4 fL (7.4-10.4); MONOCYTES % (AUTO) 12 % (2-9); NEUTROPHILS % (AUTO) 60 % (42-75); PLATELET COUNT 142 x10^3/uL (130-400); RED BLOOD COUNT 4.25 x10^6/uL (4.38-5.82); RED CELL DISTRIBUTION WIDTH 15.2 % (9.4-14.8)
[2021-02-20 08:17] LABS: CHOL/HDL RATIO 3.2; LDL/HDL RATIO 1.4 (0.5-3.0)
[2021-02-20 08:20] LABS: ALBUMIN 3.8 g/dL (3.4-5.0); ANION GAP 7 mmol/L (5-15); CHLORIDE 112 mmol/L (98-107)
[2021-02-20 08:22] LABS: % IRON SATURATION 11 % (20-55); CREATININE 2.77 mg/dL (0.7-1.3); IRON LEVEL 33 mcg/dL (65-175); TOTAL IRON BINDING CAPACITY 288 mcg/dL (250-450)
[2021-02-20 08:59] LABS: MD SCAN
== END | disposition home or self-care (01) ==
LOC: LAB 07:31
PROVIDERS: ATTEND Internal Medicine Nephrology
DX: I12.9 Hypertensive chronic kidney disease with stage 1 through stage 4 chronic kidney disease, or unspecified chronic kidney disease (principal); N18.4 Chronic kidney disease, stage 4 (severe); D64.9 Anemia, unspecified; N25.81 Secondary hyperparathyroidism of renal origin; E11.9 Type 2 diabetes mellitus without complications; E11.22 Type 2 diabetes mellitus with diabetic chronic kidney disease; E87.2 Acidosis; R94.4 Abnormal results of kidney function studies
CPT/HCPCS: 36415; 80061; 80069; 81001; 82043; 82306; 82570; 83540; 83550; 84156; 85025

== ENCOUNTER → 2021-04-12 | Outpatient (CLI) | payer OTHER ==
[2021-04-12 07:28] LABS: BASOPHILS % (AUTO) 1 % (0-1); EOSINOPHILS % (AUTO) 4 % (1-7); LYMPHOCYTES % (AUTO) 29 % (22-44); MEAN CORPUSCULAR HEMOGLOBIN 30.5 pg (27.5-34.5); MEAN CORPUSCULAR HGB CONC 33.2 g/dL (33.2-36.2); MEAN PLATELET VOLUME 7.9 fL (7.4-10.4); MONOCYTES % (AUTO) 9 % (2-9); NEUTROPHILS % (AUTO) 58 % (42-75); PLATELET COUNT 200 x10^3/uL (130-400); RED CELL DISTRIBUTION WIDTH 15.5 % (9.4-14.8)
[2021-04-12 07:34] LABS: HCT (SEDRATE) 39.1 % (39.2-51.8)
[2021-04-12 07:37] LABS: ALANINE AMINOTRANSFERASE 45 U/L (12-78); ANION GAP 9 mmol/L (5-15); C-REACTIVE PROTEIN, QUANT 0.36 mg/dL (0.02-0.49); CALCIUM 9.4 mg/dL (8.5-10.1); CHLORIDE 110 mmol/L (98-107)
[2021-04-12 07:39] LABS: ALKALINE PHOSPHATASE 98 U/L (45-117); BILIRUBIN,TOTAL 0.6 mg/dL (0.2-1.0); TOTAL PROTEIN 7.6 g/dL (6.4-8.2)
== END | disposition home or self-care (01) ==
LOC: LAB 07:10
PROVIDERS: ATTEND Internal Medicine Infectious Disease
DX: R79.82 Elevated C-reactive protein (CRP) (principal); D63.8 Anemia in other chronic diseases classified elsewhere; E11.22 Type 2 diabetes mellitus with diabetic chronic kidney disease; T84.7XXD Infection and inflammatory reaction due to other internal orthopedic prosthetic devices, implants and grafts, subsequent encounter; R70.0 Elevated erythrocyte sedimentation rate; N18.9 Chronic kidney disease, unspecified; Y83.8 Other surgical procedures as the cause of abnormal reaction of the patient, or of later complication, without mention of misadventure at the time of the procedure
CPT/HCPCS: 36415; 80053; 85025; 85651; 86140

== ENCOUNTER → 2021-05-25 | Outpatient (CLI) | payer OTHER ==
[2021-05-25 07:37] LABS: BASOPHILS % (AUTO) 1 % (0-1); EOSINOPHILS % (AUTO) 3 % (1-7); LYMPHOCYTES % (AUTO) 25 % (22-44); MEAN CORPUSCULAR HEMOGLOBIN 30.5 pg (27.5-34.5); MEAN CORPUSCULAR HGB CONC 33.7 g/dL (33.2-36.2); MEAN PLATELET VOLUME 8.2 fL (7.4-10.4); MONOCYTES % (AUTO) 8 % (2-9); NEUTROPHILS % (AUTO) 64 % (42-75); PLATELET COUNT 193 x10^3/uL (130-400); RED BLOOD COUNT 4.48 x10^6/uL (4.38-5.82)
[2021-05-25 07:51] LABS: % IRON SATURATION 18 % (20-55); ANION GAP 8 mmol/L (5-15); CALCIUM 8.5 mg/dL (8.5-10.1); CHLORIDE 109 mmol/L (98-107); CREATININE 2.85 mg/dL (0.7-1.3); IRON LEVEL 59 mcg/dL (65-175); TOTAL IRON BINDING CAPACITY 334 mcg/dL (250-450)
[2021-05-25 07:53] LABS: CALCIUM 8.5 mg/dL (8.5-10.1)
[2021-05-25 07:58] LABS: MICROSCOPIC AUTO
[2021-05-25 08:06] LABS: CREATININE,URINE RANDOM 28.1 mg/dL
== END | disposition home or self-care (01) ==
LOC: LAB 07:15
PROVIDERS: ATTEND Internal Medicine Nephrology
DX: I12.9 Hypertensive chronic kidney disease with stage 1 through stage 4 chronic kidney disease, or unspecified chronic kidney disease (principal); E11.22 Type 2 diabetes mellitus with diabetic chronic kidney disease; N18.4 Chronic kidney disease, stage 4 (severe); D64.9 Anemia, unspecified; N25.81 Secondary hyperparathyroidism of renal origin; E87.2 Acidosis
CPT/HCPCS: 36415; 80069; 81001; 82306; 82310; 82570; 82728; 83540; 83550; 83970; 84156; 85025

== ENCOUNTER 2021-07-13 07:17 | Outpatient (CLI) | payer OTHER | END 2021-07-13 23:59 | disposition home or self-care (01) | LOC: LAB 07:17 | PROVIDERS: ATTEND Internal Medicine Nephrology | DX: I12.9 Hypertensive chronic kidney disease with stage 1 through stage 4 chronic kidney disease, or unspecified chronic kidney disease (principal); N18.4 Chronic kidney disease, stage 4 (severe); D64.9 Anemia, unspecified; E11.22 Type 2 diabetes mellitus with diabetic chronic kidney disease; N25.81 Secondary hyperparathyroidism of renal origin; E87.2 Acidosis; R94.4 Abnormal results of kidney function studies ==

== ENCOUNTER 2021-07-17 14:04 | Outpatient (CLI) | payer OTHER | END 2021-07-17 23:59 | disposition home or self-care (01) | LOC: WOUND 14:04 | PROVIDERS: ATTEND Internal Medicine | DX: I87.333 Chronic venous hypertension (idiopathic) with ulcer and inflammation of bilateral lower extremity (principal); E11.622 Type 2 diabetes mellitus with other skin ulcer; L97.212 Non-pressure chronic ulcer of right calf with fat layer exposed; L97.222 Non-pressure chronic ulcer of left calf with fat layer exposed; L97.311 Non-pressure chronic ulcer of right ankle limited to breakdown of skin; L97.321 Non-pressure chronic ulcer of left ankle limited to breakdown of skin; L97.811 Non-pressure chronic ulcer of other part of right lower leg limited to breakdown of skin; L97.821 Non-pressure chronic ulcer of other part of left lower leg limited to breakdown of skin; J45.909 Unspecified asthma, uncomplicated; K21.9 Gastro-esophageal reflux disease without esophagitis; M10.9 Gout, unspecified; M19.90 Unspecified osteoarthritis, unspecified site; E66.9 Obesity, unspecified; I12.9 Hypertensive chronic kidney disease with stage 1 through stage 4 chronic kidney disease, or unspecified chronic kidney disease; E11.22 Type 2 diabetes mellitus with diabetic chronic kidney disease; N18.30 Chronic kidney disease, stage 3 unspecified; Z79.82 Long term (current) use of aspirin; Z96.651 Presence of right artificial knee joint; Z90.49 Acquired absence of other specified parts of digestive tract; Z68.34 Body mass index [BMI] 34.0-34.9, adult; Z88.2 Allergy status to sulfonamides | CPT/HCPCS: 97597; 97598; 99215 ==

== ENCOUNTER → 2021-07-24 | Outpatient (CLI) | payer OTHER | END | disposition home or self-care (01) | LOC: WOUND 12:56 | PROVIDERS: ATTEND Internal Medicine | DX: I87.333 Chronic venous hypertension (idiopathic) with ulcer and inflammation of bilateral lower extremity (principal); E11.622 Type 2 diabetes mellitus with other skin ulcer; L97.212 Non-pressure chronic ulcer of right calf with fat layer exposed; L97.222 Non-pressure chronic ulcer of left calf with fat layer exposed; L97.311 Non-pressure chronic ulcer of right ankle limited to breakdown of skin; L97.321 Non-pressure chronic ulcer of left ankle limited to breakdown of skin; L97.811 Non-pressure chronic ulcer of other part of right lower leg limited to breakdown of skin; L97.821 Non-pressure chronic ulcer of other part of left lower leg limited to breakdown of skin; J45.909 Unspecified asthma, uncomplicated; K21.9 Gastro-esophageal reflux disease without esophagitis; M10.9 Gout, unspecified; M19.90 Unspecified osteoarthritis, unspecified site; E66.9 Obesity, unspecified; I12.9 Hypertensive chronic kidney disease with stage 1 through stage 4 chronic kidney disease, or unspecified chronic kidney disease; E11.22 Type 2 diabetes mellitus with diabetic chronic kidney disease; N18.30 Chronic kidney disease, stage 3 unspecified; Z79.82 Long term (current) use of aspirin; Z96.651 Presence of right artificial knee joint; Z90.49 Acquired absence of other specified parts of digestive tract; Z68.34 Body mass index [BMI] 34.0-34.9, adult; Z88.2 Allergy status to sulfonamides | CPT/HCPCS: 97597; 97598 ==